=== PATIENT | male | born 1965 | race Caucasian/White ===

== ENCOUNTER 2017-11-28 02:26 | Outpatient (CLI) | payer MEDICAID ==
[~2017-11-28 02:26] MED LIST: CLON0.2T PO; DILT240C54 PO; FURO40TA4 PO; GENT30OI2 TOP; LISI40TA4 PO; LOSA50TA37 PO; POTA-82 PO; SIMV20TA PO; WARF-55 PO
== END 2017-11-28 23:59 | disposition home or self-care (01) ==
LOC: DIABETIC 02:26
PROVIDERS: ATTEND Surgery
DX: M25.50 Pain in unspecified joint (principal); E66.01 Morbid (severe) obesity due to excess calories; I89.0 Lymphedema, not elsewhere classified; I11.0 Hypertensive heart disease with heart failure; I50.9 Heart failure, unspecified
CPT/HCPCS: 97802

== ENCOUNTER 2017-12-13 04:23 | Outpatient (CLI) | payer MEDICAID | END 2017-12-13 23:59 | disposition home or self-care (01) | LOC: DIABETIC 04:23 | PROVIDERS: ATTEND Surgery | DX: M25.50 Pain in unspecified joint (principal); E66.01 Morbid (severe) obesity due to excess calories; I89.0 Lymphedema, not elsewhere classified; I13.0 Hypertensive heart and chronic kidney disease with heart failure and stage 1 through stage 4 chronic kidney disease, or unspecified chronic kidney disease; I50.9 Heart failure, unspecified; N17.9 Acute kidney failure, unspecified; I25.10 Atherosclerotic heart disease of native coronary artery without angina pectoris; I48.2 Chronic atrial fibrillation; E78.5 Hyperlipidemia, unspecified; Z79.01 Long term (current) use of anticoagulants; Z79.899 Other long term (current) drug therapy; Z95.1 Presence of aortocoronary bypass graft | CPT/HCPCS: 97802 ==

== ENCOUNTER 2018-01-10 01:46 | Outpatient (CLI) | payer MEDICAID | END 2018-01-10 23:59 | disposition home or self-care (01) | LOC: DIABETIC 01:46 | PROVIDERS: ATTEND Surgery | DX: E66.01 Morbid (severe) obesity due to excess calories (principal); M25.50 Pain in unspecified joint; I88.9 Nonspecific lymphadenitis, unspecified; I11.0 Hypertensive heart disease with heart failure; I50.9 Heart failure, unspecified; Z79.899 Other long term (current) drug therapy | CPT/HCPCS: 97802 ==

== ENCOUNTER 2022-11-02 22:05 | Inpatient (IN) | payer MEDICAID ==
[~2022-11-02] VITALS: Ht 180.3 cm; Wt 136.4 kg
[~2022-11-02 22:05] MED LIST changes: +LISI40TA13 PO; -LISI40TA4 PO; -LOSA50TA37 PO; +LOSA50TA64 PO; +POTA-366 PO; -POTA-82 PO; +SIMV-342 PO; -SIMV20TA PO
[2022-11-02 23:06] LABS: BASOPHILS # (AUTO) 0.1 X10'3 (0-0.2); BASOPHILS % (AUTO) 0.8 % (0-1); EOSINOPHILS # (AUTO) 0.2 X10'3 (0-0.9); EOSINOPHILS % (AUTO) 2.1 % (0-6); LYMPHOCYTES # (AUTO) 0.9 X10'3 (1.1-4.8); LYMPHOCYTES % (AUTO) 10.3 % (21-51); MEAN CORPUSCULAR HEMOGLOBIN 23.9 PG (27.0-31.0); MEAN CORPUSCULAR HGB CONC 31.2 g/dL (33.0-36.5); MEAN CORPUSCULAR VOLUME 76.8 FL (78-98); MEAN PLATELET VOLUME 7.4 FL (7.4-10.4); MONOCYTES % (AUTO) 11.4 % (2-12); NEUTROPHILS # (AUTO) 6.8 X10'3 (1.8-7.7); NEUTROPHILS % (AUTO) 75.4 % (42-75); PLATELET COUNT 504 X10'3 (140-440); RED BLOOD COUNT 2.83 X10'6 (4.70-6.10); RED CELL DISTRIBUTION WIDTH 18.1 % (11.5-14.5)
[2022-11-02 23:11] LABS: HEMATOCRIT 21.7 % (42.0-52.0); HEMOGLOBIN 6.8 g/dl (14.0-17.9)
[2022-11-02 23:20] LABS: ALANINE AMINOTRANSFERASE 27 U/L (12-78); ALBUMIN 2.4 G/DL (3.4-5.0); ALBUMIN/GLOBULIN RATIO 0.5 (1.1-1.5); ALKALINE PHOSPHATASE 105 IU/L (46-116); ANION GAP 13 (8-16); ASPARTATE AMINO TRANSFERASE 16 U/L (10-37); BILIRUBIN,TOTAL 0.4 MG/DL (0.1-1.0); BLOOD UREA NITROGEN 53 MG/DL (7-18); BUN/CREATININE RATIO 14.6 (10.0-20.0); C-REACTIVE PROTEIN 14.09 MG/DL (0.0-0.5); CALCIUM 8.8 MG/DL (8.5-10.1); CHLORIDE 108 MMOL/L (99-107); CREATININE 3.62 MG/DL (0.60-1.10); GLUCOSE 106 MG/DL (70-104); POTASSIUM 4.1 MMOL/L (3.5-5.1); SODIUM 139 MMOL/L (135-145); TOTAL CARBON DIOXIDE 18.1 MMOL/L (24-32); TOTAL PROTEIN 7.3 G/DL (6.4-8.2); eGFR 17 ML/MIN
[2022-11-03 00:45] LABS: OCCULT BLOOD STOOL POSITIVE (Neg)
[2022-11-03] MEDS ORDERED: KETO5DRO75 (00:46)
[2022-11-03] MEDS ORDERED: FLUT16SP2 BOTHNARES (00:46)
[2022-11-03] MEDS ORDERED: FURO80TA87 PO (00:46)
[2022-11-03] MEDS ORDERED: TADA5TAB2 PO (00:46)
[2022-11-03] MEDS ORDERED: OMEP40CA21 PO (00:46)
[2022-11-03] MEDS ORDERED: CARV-50 PO (00:46)
[2022-11-03] MEDS ORDERED: FERR325T35 PO (00:46)
[2022-11-03] MEDS ORDERED: FOLI0.4T6 PO (00:46)
[2022-11-03] MEDS ORDERED: NIFE-33 PO (00:46)
[2022-11-03 01:00] LABS: CLARITY,URINE SLIGHTLY CLOUDY (Clear); COLOR,URINE YELLOW (Yellow); GLUCOSE, URINE NEGATIVE (Neg); KETONES,URINE NEGATIVE (Neg); LEUKOCYTE ESTERASE ,URINE NEGATIVE (Neg); NITRITES, URINE NEGATIVE (Neg); OCCULT BLOOD,URINE TRACE-INTACT (Neg); PROTEIN,URINE 30 mg/dl (Neg); UROBILINOGEN,URINE 0.2 E.U/dL (0.2-1.0)
[2022-11-03 01:05] LABS: UA COLLECTION TYPE CLN CATCH MIDSTREAM
[2022-11-03 01:06] LABS: COARSE GRANULAR CAST 0-3 /LPF (NEGATIVE); SQUAMOUS EPITHELIAL CELL,UR FEW /LPF (FEW)
[2022-11-03 01:07] LABS: AMORPHOUS URATES 1+; BACTERIA,URINE NONE SEEN /HPF (Neg); WBC,URINE 0-4 /HPF (0-4)
[2022-11-03 01:18] LABS: BASOPHILS # (AUTO) 0.1 X10'3 (0-0.2); BASOPHILS % (AUTO) 0.8 % (0-1); EOSINOPHILS # (AUTO) 0.2 X10'3 (0-0.9); EOSINOPHILS % (AUTO) 1.8 % (0-6); LYMPHOCYTES # (AUTO) 1.1 X10'3 (1.1-4.8); LYMPHOCYTES % (AUTO) 11.6 % (21-51); MEAN CORPUSCULAR HEMOGLOBIN 24.8 PG (27.0-31.0); MEAN CORPUSCULAR HGB CONC 32.5 g/dL (33.0-36.5); MEAN CORPUSCULAR VOLUME 76.3 FL (78-98); MEAN PLATELET VOLUME 7.1 FL (7.4-10.4); MONOCYTES % (AUTO) 10.9 % (2-12); NEUTROPHILS # (AUTO) 7.1 X10'3 (1.8-7.7); NEUTROPHILS % (AUTO) 74.9 % (42-75); PLATELET COUNT 479 X10'3 (140-440); RED BLOOD COUNT 2.75 X10'6 (4.70-6.10); RED CELL DISTRIBUTION WIDTH 17.9 % (11.5-14.5); WHITE BLOOD COUNT 9.5 X10'3 (4.5-11.0)
[2022-11-03 01:19] LABS: APTT 53 SECONDS (22-32)
[2022-11-03 01:20] LABS: HEMOGLOBIN 6.8 g/dl (14.0-17.9)
[2022-11-03] MEDS: pantoprazole 40MG/NS 100ML BAG 100 ML IV SCH ×5 (02:10→20:03)
[2022-11-03 02:32] VITALS: BP 148/76
[2022-11-03 02:47] VITALS: BP 139/76
[2022-11-03] MEDS ORDERED: carVEDilol 12.5mg tablet PO ONE ×2 (02:50→05:40)
[2022-11-03] MEDS ORDERED: HYDROcodone/acetaminophen 5mg/325mg tablet PO ONE (03:10)
[2022-11-03 03:32] VITALS: BP 127/85
--- NOTE | 2022-11-03 08:00 | NUR ---
SPOKE WITH ER MD ABOUT PT PLAN OF CARE. PER MD PT IS OKAY TO EAT. DR. WHITTAKER WAS CONSULTED AND HAS DECIDED PT WILL NOT NEED TO GO TO GI LAB AND IS OKAY WITH PT EATING REGULAR DIET. ALSO UPON FURTHER REVIEW PT CREATENINE LEVELS HAVE BEEN ELEVATED FOR YEARS AND MD DOES NOT FEEL NEPHROLOGY CONSULT IS NEEDED AT THIS TIME. PT WILL HAVE MRI OF HIS FOOT AND PLAN FOR HOSPITAL ADMISSION.
--- NOTE | 2022-11-03 08:10 | NUR ---
WAITING FOR ABX FROM PHARMACY. PHARMACY TO DELIVER
--- NOTE | 2022-11-03 08:10 | NUR ---
UPDATED PT SIGNIFICANT OTHER OF PLAN OF CARE.
[2022-11-03 08:11] LABS: HEMATOCRIT 25.3 % (42.0-52.0); HEMOGLOBIN 7.9 g/dl (14.0-17.9); MEAN CORPUSCULAR HEMOGLOBIN 24.7 PG (27.0-31.0); MEAN CORPUSCULAR HGB CONC 31.3 g/dL (33.0-36.5); MEAN PLATELET VOLUME 7.3 FL (7.4-10.4); PLATELET COUNT 470 X10'3 (140-440); RED CELL DISTRIBUTION WIDTH 18.8 % (11.5-14.5); WHITE BLOOD COUNT 8.1 X10'3 (4.5-11.0)
--- NOTE | 2022-11-03 09:59 | NUR ---
LATE MEDICATION ADMISTRATION OF THE CIPROFLOXACIN PER WAITING MEDICATION [place] FROM PHARMACY
--- NOTE | 2022-11-03 10:26 | NUR ---
PT UP TO BEDSIDE COMMODE, BM. FINISHED MRI SCREENING FORM.
[2022-11-03] MEDS: ciprofloxacin/D5W 200mg/100mL 100 ML IV SCH ×2 (10:40→19:48)
[2022-11-03 14:51] LABS: BASOPHILS # (AUTO) 0.1 X10'3 (0-0.2); EOSINOPHILS # (AUTO) 0.2 X10'3 (0-0.9); EOSINOPHILS % (AUTO) 1.7 % (0-6); HEMATOCRIT 25.9 % (42.0-52.0); HEMOGLOBIN 8.1 g/dl (14.0-17.9); LYMPHOCYTES # (AUTO) 0.8 X10'3 (1.1-4.8); LYMPHOCYTES % (AUTO) 8.5 % (21-51); MEAN CORPUSCULAR HEMOGLOBIN 24.5 PG (27.0-31.0); MEAN CORPUSCULAR HGB CONC 31.3 g/dL (33.0-36.5); MEAN CORPUSCULAR VOLUME 78.3 FL (78-98); MEAN PLATELET VOLUME 7.2 FL (7.4-10.4); MONOCYTES # (AUTO) 1.1 X10'3 (0-0.9); MONOCYTES % (AUTO) 10.7 % (2-12); NEUTROPHILS # (AUTO) 7.7 X10'3 (1.8-7.7); NEUTROPHILS % (AUTO) 78.1 % (42-75); PLATELET COUNT 527 X10'3 (140-440); RED CELL DISTRIBUTION WIDTH 18.5 % (11.5-14.5); WHITE BLOOD COUNT 9.8 X10'3 (4.5-11.0)
[2022-11-03] MEDS ORDERED: HYDROcodone/acetaminophen 10/325mg tab PO ONE (15:05)
[2022-11-03 15:07] LABS: ALANINE AMINOTRANSFERASE 22 U/L (12-78); ALBUMIN 2.5 G/DL (3.4-5.0); ALBUMIN/GLOBULIN RATIO 0.5 (1.1-1.5); ALKALINE PHOSPHATASE 101 IU/L (46-116); ANION GAP 11 (8-16); ASPARTATE AMINO TRANSFERASE 12 U/L (10-37); BILIRUBIN,TOTAL 0.5 MG/DL (0.1-1.0); BLOOD UREA NITROGEN 45 MG/DL (7-18); BUN/CREATININE RATIO 13.4 (10.0-20.0); CALCIUM 9.1 MG/DL (8.5-10.1); CHLORIDE 110 MMOL/L (99-107); CREATININE 3.35 MG/DL (0.60-1.10); GLUCOSE 113 MG/DL (70-104); POTASSIUM 4.1 MMOL/L (3.5-5.1); SODIUM 140 MMOL/L (135-145); TOTAL CARBON DIOXIDE 19.4 MMOL/L (24-32); TOTAL PROTEIN 7.7 G/DL (6.4-8.2); eGFR 19 ML/MIN
[2022-11-03] MEDS ORDERED: magnesium Cl slow-release 64mg tablet PO PRN (16:35)
[2022-11-03] MEDS ORDERED: potassium Cl 40MEQ/1/2NS 520ml 520 ML IV PRN (16:35)
[2022-11-03] MEDS ORDERED: potassium Cl 20 mEq SR tablet PO PRN ×2 (16:35)
[2022-11-03] MEDS ORDERED: acetaminophen 325mg tablet PO PRN (16:35)
[2022-11-03] MEDS ORDERED: ondansetron/PF 4mg/2ml inj IV PRN (16:35)
[2022-11-03] MEDS ORDERED: magnesium 4gm in 100ml NS 100 ML IV PRN (16:35)
[2022-11-03] MEDS ORDERED: morphine 2 MG/ML inj. syringe IV PRN (16:35)
[2022-11-03] MEDS ORDERED: magnesium 2GM in 50ml NS 50 ML IV PRN (16:35)
[2022-11-03] MEDS ORDERED: WARF1TAB83 PO (16:43)
[2022-11-03] MEDS ORDERED: FOLI1TAB27 PO (16:43)
[2022-11-03] MEDS ORDERED: CARV25TA2 PO (16:43)
[2022-11-03] MEDS ORDERED: WARF-55 PO (16:47)
[2022-11-03] MEDS: docusate sod 100mg capsule PO SCH (19:25)
[2022-11-03 20:00] VITALS: BP 159/78
[2022-11-03] MEDS: K and/or MAG REPLACEMENT MC SCH (20:00)
[2022-11-03] MEDS: HYDROcodone/acetaminophen 5mg/325mg tablet PO PRN (22:32)
--- NOTE | 2022-11-03 23:31 | NUR ---
Pt insists on having his change the dressings for his wounds on his legs. He says she is the only one who can do it correctly. His was in the room when he was admitted and she changed the dressings on his lower legs. I talked to him about doing a 2 RN skin check for him but he refused it since he didn't want to undo her work and have it redone incorrectly. I told him we could check his legs and take photos tomorrow when his is here so she can redo his legs. He agreed and I will pass on the information to the day RN.
[2022-11-04] MEDS: pantoprazole 40MG/NS 100ML BAG 100 ML IV SCH ×5 (00:49→21:55)
[2022-11-04 01:00] VITALS: BP 130/62
[2022-11-04] MEDS ORDERED: metoprolol tartrate 25mg tablet PO SCH (01:05)
--- NOTE | 2022-11-04 01:30 | NUR ---
Pts heart rate fluctuating from 110-130's afib. B/P 132/64. Called Dr Chilel pt given one time dose po metoprolol for heart rate and in afib.
--- NOTE | 2022-11-04 03:19 | NUR ---
assumed care of patient from Yon RN who stayed over from dayshift. Pt is resting no change.
--- NOTE | 2022-11-04 06:00 | NUR ---
pt refused blood pressure for tech for am vitals.
[2022-11-04] MEDS: HYDROcodone/acetaminophen 5mg/325mg tablet PO PRN ×2 (06:15→21:58)
--- NOTE | 2022-11-04 06:42 | NUR ---
Patient in room PCU 3024. I have received report from PRATIK WILKERSON and had the opportunity to ask questions and assume patient care.
[2022-11-04 07:29] LABS: BASOPHILS # (AUTO) 0.1 X10'3 (0-0.2); BASOPHILS % (AUTO) 1.2 % (0-1); EOSINOPHILS # (AUTO) 0.2 X10'3 (0-0.9); EOSINOPHILS % (AUTO) 2.4 % (0-6); LYMPHOCYTES # (AUTO) 0.8 X10'3 (1.1-4.8); LYMPHOCYTES % (AUTO) 9.3 % (21-51); MEAN CORPUSCULAR HEMOGLOBIN 24.9 PG (27.0-31.0); MEAN CORPUSCULAR VOLUME 77.6 FL (78-98); MEAN PLATELET VOLUME 7.3 FL (7.4-10.4); MONOCYTES # (AUTO) 0.8 X10'3 (0-0.9); MONOCYTES % (AUTO) 10.2 % (2-12); NEUTROPHILS # (AUTO) 6.3 X10'3 (1.8-7.7); NEUTROPHILS % (AUTO) 76.9 % (42-75); PLATELET COUNT 478 X10'3 (140-440); RED BLOOD COUNT 3.22 X10'6 (4.70-6.10); RED CELL DISTRIBUTION WIDTH 17.9 % (11.5-14.5); WHITE BLOOD COUNT 8.2 X10'3 (4.5-11.0)
[2022-11-04 07:33] LABS: ALBUMIN 2.4 G/DL (3.4-5.0); ANION GAP 10 (8-16); BLOOD UREA NITROGEN 40 MG/DL (7-18); BUN/CREATININE RATIO 12.2 (10.0-20.0); CHLORIDE 112 MMOL/L (99-107); CREATININE 3.27 MG/DL (0.60-1.10); GLUCOSE 101 MG/DL (70-104); MAGNESIUM 2.2 MG/DL (1.5-2.4); POTASSIUM 4.1 MMOL/L (3.5-5.1); SODIUM 141 MMOL/L (135-145); TOTAL CARBON DIOXIDE 18.9 MMOL/L (24-32); eGFR 20 ML/MIN
--- NOTE | 2022-11-04 07:41 | NUR ---
Noted pt on carb controlled/heart healthy diet Glu WNL w/ no A1C hx or home DM meds per EMR. Per RN, pt reported hx DM. NICOLE d/w RN regarding removal of carb controlled restriction if MD agreeable given above- would better meet nutrient needs this admit given stature. Addendum: 11/04/22 at [address] Amended: Links added.
--- NOTE | 2022-11-04 07:42 | NUR ---
Page Sent promotional table spacer PAGER ID: [phone] MESSAGE: [phone] B BRAD PT IS SUSTAINING THE 120-130S HEART RATE WITH RANDOM JUMPS INTO THE 150S HR. PLEASE LET ME KNOW IF THERE BRITNEY ANYTHING YOU WOULD LIKE DONE. HIS MED REC HAS NOT BEEN ADRESSED EITHER. THANKS
[2022-11-04] MEDS: K and/or MAG REPLACEMENT MC SCH ×2 (08:00→20:00)
[2022-11-04] MEDS: ciprofloxacin/D5W 200mg/100mL 100 ML IV SCH ×2 (08:33→20:48)
--- NOTE | 2022-11-04 08:35 | NUR ---
Page Sent PAGER ID: [phone] MESSAGE: [id number] B BRAD, URGENT PT HR IS IN THE 160S HR, I NEED SOEMTHING FOR THIS PT. CAN YOU PLEASE RESPOND THIS IS MY SECOND PAGE. TC
[2022-11-04] MEDS: docusate sod 100mg capsule PO SCH ×2 (08:37→20:49)
[2022-11-04] MEDS ORDERED: metoprolol tartrate 1mg/ml inj IV ONE (08:45)
--- NOTE | 2022-11-04 08:55 | NUR ---
PT REFUSED THE PUSH OF METOPROL, WILL NOTIFY DR DAVALOS.
--- NOTE | 2022-11-04 08:58 | NUR ---
Page Sent PAGER ID: [phone] MESSAGE: [id number] B BRAD PT REFUSED THE METOPROLOL, HE JUST WANTS HIS MEDS TO START KEDAR. TC Watson7
[2022-11-04 10:00] VITALS: BP 132/95
[2022-11-04] MEDS ORDERED: lisinopril 20mg tablet PO SCH (11:07)
[2022-11-04] MEDS: carVEDilol 12.5mg tablet PO SCH ×2 (11:27→16:47)
[2022-11-04] MEDS: folic acid 1mg tablet PO SCH (11:27)
[2022-11-04] MEDS: NIFEdipine XL 30mg tablet PO SCH (11:28)
--- NOTE | 2022-11-04 11:41 | NUR ---
pt refused me looking at his legs and says nursing can look at them when his comes to change his bandages.
[2022-11-04] MEDS ORDERED: furosemide 40mg tablet PO SCH (12:30)
--- NOTE | 2022-11-04 16:04 | NUR ---
Page Sent PAGER ID: [phone] MESSAGE: [id number] B BRAD, PT HAS HEART BURN CAN I GET SOMETHING PLEASE. TC
[2022-11-04] MEDS ORDERED: mag hydrox/Alum hydrox/simeth 30ml oral suspension PO PRN ×2 (16:20→16:25)
[2022-11-04] MEDS: potassium Cl 20 mEq SR tablet PO SCH (16:38)
--- NOTE | 2022-11-04 18:21 | NUR ---
Problems reprioritized. Patient report given, questions answered & plan of care reviewed with dipti rhoades.
[2022-11-04] MEDS ORDERED: levoFLOXACIN-Levaquin 500mg/D5 100 ML IV SCH (19:45)
[2022-11-04] MEDS ORDERED: PEG 3350/Na sulf,bicarb,Cl/KCl oral sol 4 liter bottle PO ONE (19:50)
[2022-11-04] MEDS ORDERED: KETOTIFEN FUMARATE SCH (20:00)
--- NOTE | 2022-11-04 20:00 | NUR ---
pt refusing most care and skin checks
--- NOTE | 2022-11-04 20:00 | NUR ---
pt refused vital signs
[2022-11-04] MEDS: linezolid 600mg/300ml PREMIX 300 ML IV SCH (22:39)
--- NOTE | 2022-11-04 23:19 | NUR ---
HIGH SCHOOL ENGLISH TEACHER documentation: I have reviewed and agree with all interventions, assessments performed and documented by dipti rhoades .
[2022-11-05] MEDS: HYDROcodone/acetaminophen 5mg/325mg tablet PO PRN ×4 (03:10→23:43)
--- NOTE | 2022-11-05 03:13 | NUR ---
pt requesting sandwich and refusing bowel prep. educated pt on importance of drinking Golytely to have colonoscopy done and to verify if he has a bleed. pt still refused and insisted on eating.
[2022-11-05] MEDS: pantoprazole 40MG/NS 100ML BAG 100 ML IV SCH ×5 (05:37→23:46)
[2022-11-05 06:00] VITALS: BP 118/50
[2022-11-05 06:45] LABS: BASOPHILS # (AUTO) 0.1 X10'3 (0-0.2); BASOPHILS % (AUTO) 1.1 % (0-1); EOSINOPHILS # (AUTO) 0.2 X10'3 (0-0.9); EOSINOPHILS % (AUTO) 1.6 % (0-6); LYMPHOCYTES # (AUTO) 0.9 X10'3 (1.1-4.8); LYMPHOCYTES % (AUTO) 9.9 % (21-51); MEAN CORPUSCULAR HEMOGLOBIN 25.2 PG (27.0-31.0); MEAN CORPUSCULAR HGB CONC 32.6 g/dL (33.0-36.5); MEAN CORPUSCULAR VOLUME 77.4 FL (78-98); MEAN PLATELET VOLUME 7.5 FL (7.4-10.4); MONOCYTES # (AUTO) 1.2 X10'3 (0-0.9); MONOCYTES % (AUTO) 12.3 % (2-12); NEUTROPHILS # (AUTO) 7.1 X10'3 (1.8-7.7); NEUTROPHILS % (AUTO) 75.1 % (42-75); PLATELET COUNT 447 X10'3 (140-440); RED BLOOD COUNT 2.78 X10'6 (4.70-6.10); RED CELL DISTRIBUTION WIDTH 18.6 % (11.5-14.5); WHITE BLOOD COUNT 9.4 X10'3 (4.5-11.0)
[2022-11-05 06:48] LABS: ALBUMIN 2.3 G/DL (3.4-5.0); ANION GAP 12 (8-16); BLOOD UREA NITROGEN 38 MG/DL (7-18); BUN/CREATININE RATIO 11.7 (10.0-20.0); CALCIUM 8.6 MG/DL (8.5-10.1); CHLORIDE 109 MMOL/L (99-107); CREATININE 3.25 MG/DL (0.60-1.10); GLUCOSE 114 MG/DL (70-104); SODIUM 139 MMOL/L (135-145); TOTAL CARBON DIOXIDE 17.6 MMOL/L (24-32); eGFR 20 ML/MIN
[2022-11-05 06:53] LABS: HEMATOCRIT 21.5 % (42.0-52.0)
--- NOTE | 2022-11-05 06:54 | NUR ---
sent to [facility]: [id number] Roseanna: needs second IV for antibiotics/blood. 4 attempts. unable to obtain. Could you help please? Thank you. Kavya WILKERSON [phone]
[2022-11-05 07:13] LABS: PLATELET ESTIMATE INCREASED
[2022-11-05 07:14] LABS: ANISOCYTOSIS 2+; HYPOCHROMASIA 1+; MICROCYTOSIS 1+; POLYCHROMASIA 1+; ROULEAUX 1+
[2022-11-05 07:15] LABS: ELLIPTOCYTES 1+
--- NOTE | 2022-11-05 07:24 | NUR ---
sent to [facility]: 1892Y Roseanna: H&H: 7.0,21.5. Refusing golytly, wound care and bp vital sign. Has dm, Aic order? thank you. Kavya WILKERSON [phone]
[2022-11-05] MEDS: carVEDilol 12.5mg tablet PO SCH ×2 (07:30→17:20)
[2022-11-05] MEDS ORDERED: non-formulary drug (Omeprazole (Prilosec) 1 CAP) PO SCH (08:00)
[2022-11-05] MEDS: fluticasone nasal spray 16GM bottle NS SCH (08:00)
[2022-11-05] MEDS: K and/or MAG REPLACEMENT MC SCH ×2 (08:00→19:38)
[2022-11-05] MEDS ORDERED: warfarin 1mg tablet PO SCH (08:00)
[2022-11-05] MEDS ORDERED: non-formulary drug (Tadalafil* (Cialis*) 1 TAB) PO SCH (08:00)
[2022-11-05] MEDS: docusate sod 100mg capsule PO SCH ×2 (08:00→21:31)
[2022-11-05] MEDS: ciprofloxacin/D5W 200mg/100mL 100 ML IV SCH (08:39)
[2022-11-05] MEDS: folic acid 1mg tablet PO SCH (08:39)
[2022-11-05] MEDS: ferrous sulfate 325mg tablet PO SCH (08:39)
[2022-11-05] MEDS: potassium Cl 20 mEq SR tablet PO SCH ×2 (08:39→17:20)
[2022-11-05] MEDS: NIFEdipine XL 30mg tablet PO SCH (08:39)
[2022-11-05] MEDS: linezolid 600mg/300ml PREMIX 300 ML IV SCH ×2 (09:51→21:07)
[2022-11-05 11:00] VITALS: BP 110/76
--- NOTE | 2022-11-05 13:24 | NUR ---
F/u: Noted orders in place for an A1c, results pending at this time. Per physician notes pt with foot ulcer/osteomyelitis. Wound care has been consulted, pending assessment. Noted pt started on IV Linezolid 11/04, pt would benefit from low tyramine nutrition therapy education if to continue on this abx. Will continue to follow and make recommendations as appropriate and provide nutrition therapy education(s) as needed. Addendum: 11/05/22 at [address] Amended: Links added.
[2022-11-05 13:27] LABS: HEMOGLOBIN 7.3 g/dl (14.0-17.9); MEAN CORPUSCULAR HEMOGLOBIN 24.9 PG (27.0-31.0); MEAN CORPUSCULAR HGB CONC 31.9 g/dL (33.0-36.5); MEAN CORPUSCULAR VOLUME 78.2 FL (78-98); MEAN PLATELET VOLUME 7.4 FL (7.4-10.4); PLATELET COUNT 429 X10'3 (140-440); RED BLOOD COUNT 2.94 X10'6 (4.70-6.10); RED CELL DISTRIBUTION WIDTH 18.4 % (11.5-14.5); WHITE BLOOD COUNT 8.7 X10'3 (4.5-11.0)
--- NOTE | 2022-11-05 21:10 | NUR ---
EDUCATIONAL GUIDANCE COUNSELOR documentation: I have reviewed and agree with all interventions, assessments performed and documented by Concetta Devine LVN.
--- NOTE | 2022-11-05 21:15 | NUR ---
pt advised he says his pain is a 7 because he wants to "stay consistent". pt refused pain meds at this time because they make him drowsy and he is trying to finish drinking his go lytley
[2022-11-05] MEDS: ciprofloxacin 250mg tablet PO SCH (21:31)
--- NOTE | 2022-11-05 22:34 | NUR ---
unabe to find working manual BP cuff, pt refuses to get BP w/ vitals machine.
[2022-11-06] MEDS: pantoprazole 40MG/NS 100ML BAG 100 ML IV SCH ×4 (01:00→17:07)
[2022-11-06 05:46] LABS: BASOPHILS # (AUTO) 0.1 X10'3 (0-0.2); BASOPHILS % (AUTO) 0.9 % (0-1); EOSINOPHILS # (AUTO) 0.2 X10'3 (0-0.9); EOSINOPHILS % (AUTO) 1.7 % (0-6); HEMATOCRIT 22.9 % (42.0-52.0); HEMOGLOBIN 7.2 g/dl (14.0-17.9); LYMPHOCYTES # (AUTO) 0.9 X10'3 (1.1-4.8); LYMPHOCYTES % (AUTO) 10.5 % (21-51); MEAN CORPUSCULAR HEMOGLOBIN 24.5 PG (27.0-31.0); MEAN CORPUSCULAR HGB CONC 31.6 g/dL (33.0-36.5); MEAN CORPUSCULAR VOLUME 77.4 FL (78-98); MEAN PLATELET VOLUME 7.3 FL (7.4-10.4); MONOCYTES % (AUTO) 11.7 % (2-12); NEUTROPHILS # (AUTO) 6.6 X10'3 (1.8-7.7); NEUTROPHILS % (AUTO) 75.2 % (42-75); PLATELET COUNT 430 X10'3 (140-440); RED BLOOD COUNT 2.95 X10'6 (4.70-6.10); RED CELL DISTRIBUTION WIDTH 18.6 % (11.5-14.5); WHITE BLOOD COUNT 8.7 X10'3 (4.5-11.0)
[2022-11-06 06:25] LABS: ALBUMIN 2.4 G/DL (3.4-5.0); ANION GAP 13 (8-16); BLOOD UREA NITROGEN 38 MG/DL (7-18); BUN/CREATININE RATIO 11.5 (10.0-20.0); CHLORIDE 109 MMOL/L (99-107); CREATININE 3.31 MG/DL (0.60-1.10); GLUCOSE 110 MG/DL (70-104); MAGNESIUM 2.1 MG/DL (1.5-2.4); POTASSIUM 4.4 MMOL/L (3.5-5.1); SODIUM 140 MMOL/L (135-145); TOTAL CARBON DIOXIDE 18.5 MMOL/L (24-32); eGFR 19 ML/MIN
[2022-11-06 07:13] LABS: ANISOCYTOSIS 2+; ELLIPTOCYTES 1+; MICROCYTOSIS 1+; PLATELET ESTIMATE NORMAL; POIKILOCYTOSIS FEW
--- NOTE | 2022-11-06 07:21 | NUR ---
sent to [facility]: [id number] Roseanna: critical lab: PT 55.4, INR 5.8
[2022-11-06] MEDS: K and/or MAG REPLACEMENT MC SCH ×2 (08:00→20:00)
[2022-11-06] MEDS: linezolid 600mg/300ml PREMIX 300 ML IV SCH ×2 (08:32→20:59)
[2022-11-06] MEDS: NIFEdipine XL 30mg tablet PO SCH (08:32)
[2022-11-06] MEDS: docusate sod 100mg capsule PO SCH ×2 (08:33→20:00)
[2022-11-06] MEDS: potassium Cl 20 mEq SR tablet PO SCH ×2 (08:33→17:51)
[2022-11-06] MEDS: carVEDilol 12.5mg tablet PO SCH ×2 (08:33→17:51)
[2022-11-06] MEDS: folic acid 1mg tablet PO SCH (08:34)
[2022-11-06] MEDS: ferrous sulfate 325mg tablet PO SCH (08:34)
[2022-11-06] MEDS: HYDROcodone/acetaminophen 5mg/325mg tablet PO PRN ×2 (08:34→20:33)
[2022-11-06] MEDS: fluticasone nasal spray 16GM bottle NS SCH (08:43)
[2022-11-06] MEDS: ciprofloxacin 250mg tablet PO SCH ×2 (09:52→20:32)
--- NOTE | 2022-11-06 13:15 | NUR ---
Initial: Pt admit for melena and left foot ulcer/osteomyelitis. Per physician note left foot has an open wound, no staging in WOC note. Pt currently on a CHO controlled heart healthy diet and eating poorly, documented to be mostly consuming 25% and 100% of the starch only at meals. Pt seen at bedside, endorses a low appetite. Food preferences were obtained and d/w dietary, see below. Pt provided with written and verbal low tyramine and high protein nutrition therapy educations. Pt states he drinks Premier Protein at home and would drink Ensure during admit though then declines ONS stating he doesn't want to get it if he can't just try it first. RD discussed ONS options and encouraged pt to think about it as he is not eating much and would benefit from the additional nutrition/protein. Pt verbalized understanding, states he'll think about it, and reports trying to eat the protein at meals. Pt reports h/o gastric sleeve stating he is unsure of when he got it though it was a couple years ago and secondary to this he doesn't eat large meals and provides examples such as eggs x2 and lopez x2 for breakfast then 1/2 sandwich for lunch. Pt denies food allergies or difficulty chewing/swallowing. Per pt he just had a BM today. Pt provided with RD contact information and encouraged to reach out if needed. Noted current A1c is 5.5% and pt denies any h/o DM. RD paged physician with recommendation to discontinue CHO controlled diet restriction given this information, BG 101-114 mg/dL since admit. Will continue to follow closely. Recommendations: 1) Continue heart healthy diet; remove CHO controlled restriction given A1c 5.5%, BG 101-114 mg/dL since admit, and no PMH DM per pt- physician paged 11/06 2) [place] food preferences: apple juice TID, soup BIDLD; no coffee, hot/iced tea, melons, or Mandarin oranges; pt prefers chocolate over vanilla when possible 3) Consider chocolate Ensure IF pt agreeable; pt declined 11/06 4) Routine bowel care 5) Scaled weight this admit; subsequent weekly scaled weights Addendum: 11/06/22 at [address] Amended: Links added.
--- NOTE | 2022-11-06 16:09 | NUR ---
Report given to Ramón RN on ortho/neuro floor. pt will leave unit via bed.
--- NOTE | 2022-11-06 16:45 | NUR ---
Patient in room ORTHO 4024. I have received report from Olivia WILKERSON and had the opportunity to ask questions and assume patient care.
--- NOTE | 2022-11-06 17:00 | NUR ---
Patient mad familiar with room at this time. Patient was set up with BSC and all necessities. Patient was transferred in house. Patient is alert and oriented time 4. All lab values reviewed and medications addressed upon reaching the floor. Patient was grossly assessed and WNL. Patient doing well at this time. Call light in reach
--- NOTE | 2022-11-06 18:47 | NUR ---
Problems reprioritized. Patient report given, questions answered & plan of care reviewed with Debbie WILKERSON.
--- NOTE | 2022-11-06 18:57 | NUR ---
PAGER ID: [phone] MESSAGE: Ramón Ricketts [phone] re: [id number] Wilfred Condon patient does not have transfer orders, and I was wondering if you were continuing Tele monitoring or was it to be DC'd Thanks Ramón.
--- NOTE | 2022-11-06 20:02 | NUR ---
Problems reprioritized. Patient report given, questions answered & plan of care reviewed with RHEA VILLAFUERTE.
[2022-11-06 22:00] VITALS: BP 152/98
[2022-11-07] MEDS: HYDROcodone/acetaminophen 5mg/325mg tablet PO PRN ×4 (00:55→23:19)
[2022-11-07] MEDS: pantoprazole 40MG/NS 100ML BAG 100 ML IV SCH ×6 (01:01→23:20)
[2022-11-07 02:44] VITALS: BP 155/88
[2022-11-07 06:00] VITALS: BP 148/92
[2022-11-07 06:06] LABS: ALBUMIN 2.2 G/DL (3.4-5.0); ANION GAP 12 (8-16); BLOOD UREA NITROGEN 37 MG/DL (7-18); BUN/CREATININE RATIO 10.9 (10.0-20.0); CALCIUM 8.5 MG/DL (8.5-10.1); CHLORIDE 109 MMOL/L (99-107); GLUCOSE 122 MG/DL (70-104); POTASSIUM 4.1 MMOL/L (3.5-5.1); SODIUM 139 MMOL/L (135-145); eGFR 19 ML/MIN
[2022-11-07 06:10] LABS: BASOPHILS # (AUTO) 0.1 X10'3 (0-0.2); BASOPHILS % (AUTO) 1.1 % (0-1); EOSINOPHILS # (AUTO) 0.3 X10'3 (0-0.9); EOSINOPHILS % (AUTO) 3.4 % (0-6); LYMPHOCYTES # (AUTO) 1.3 X10'3 (1.1-4.8); LYMPHOCYTES % (AUTO) 16.6 % (21-51); MEAN CORPUSCULAR HEMOGLOBIN 24.4 PG (27.0-31.0); MEAN CORPUSCULAR HGB CONC 31.5 g/dL (33.0-36.5); MEAN CORPUSCULAR VOLUME 77.6 FL (78-98); MEAN PLATELET VOLUME 7.3 FL (7.4-10.4); MONOCYTES # (AUTO) 0.8 X10'3 (0-0.9); MONOCYTES % (AUTO) 11.1 % (2-12); NEUTROPHILS # (AUTO) 5.1 X10'3 (1.8-7.7); NEUTROPHILS % (AUTO) 67.8 % (42-75); PLATELET COUNT 397 X10'3 (140-440); RED BLOOD COUNT 2.74 X10'6 (4.70-6.10); RED CELL DISTRIBUTION WIDTH 18.5 % (11.5-14.5); WHITE BLOOD COUNT 7.6 X10'3 (4.5-11.0)
--- NOTE | 2022-11-07 06:10 | NUR ---
received report from suzanne muller
--- NOTE | 2022-11-07 06:12 | NUR ---
Problems reprioritized. Patient report given, questions answered & plan of care reviewed with RHEA CRYSTAL.
[2022-11-07 06:25] LABS: HEMATOCRIT 21.3 % (42.0-52.0); HEMOGLOBIN 6.7 g/dl (14.0-17.9)
[2022-11-07] MEDS: linezolid 600mg/300ml PREMIX 300 ML IV SCH ×2 (07:24→19:33)
[2022-11-07] MEDS: fluticasone nasal spray 16GM bottle NS SCH (07:29)
[2022-11-07] MEDS: K and/or MAG REPLACEMENT MC SCH ×2 (07:30→19:38)
[2022-11-07] MEDS: ferrous sulfate 325mg tablet PO SCH (08:00)
--- NOTE | 2022-11-07 08:00 | NUR ---
sent page to hospitalist notifying of ptt, inr and h&h levels, no new orders at this time
[2022-11-07] MEDS: NIFEdipine XL 30mg tablet PO SCH (08:47)
[2022-11-07] MEDS: docusate sod 100mg capsule PO SCH ×2 (08:47→19:32)
[2022-11-07] MEDS: potassium Cl 20 mEq SR tablet PO SCH ×2 (08:47→16:44)
[2022-11-07] MEDS: carVEDilol 12.5mg tablet PO SCH ×2 (08:48→16:45)
[2022-11-07] MEDS: ciprofloxacin 250mg tablet PO SCH ×2 (08:48→20:59)
[2022-11-07] MEDS: folic acid 1mg tablet PO SCH (08:48)
[2022-11-07 10:00] VITALS: BP 142/86
--- NOTE | 2022-11-07 12:21 | NUR ---
pt refusing woc care and refusing to have photos taken of bilateral lower extremities, continue to educate and continue to monitor
--- NOTE | 2022-11-07 15:55 | NUR ---
pt is refusing to have his vital signs taken while having his blood infusing, continue to monitor
--- NOTE | 2022-11-07 18:08 | NUR ---
gave report to suzanne horn
--- NOTE | 2022-11-07 18:29 | NUR ---
Patient in room ORTHO 4024. I have received report from suzanne Cruz and had the opportunity to ask questions and assume patient care.
[2022-11-07 19:00] VITALS: BP 138/90
[2022-11-07 22:00] VITALS: BP 132/84
[2022-11-08] MEDS: HYDROcodone/acetaminophen 5mg/325mg tablet PO PRN ×3 (03:41→21:46)
--- NOTE | 2022-11-08 04:06 | NUR ---
MESSAGE: [id number] Dustin Condon just had 11 sec vtach. bp138/90 hr108. #[id number] Cele
[2022-11-08] MEDS: pantoprazole 40MG/NS 100ML BAG 100 ML IV SCH ×4 (04:10→20:54)
[2022-11-08 05:17] LABS: BASOPHILS # (AUTO) 0.1 X10'3 (0-0.2); BASOPHILS % (AUTO) 1.4 % (0-1); EOSINOPHILS # (AUTO) 0.3 X10'3 (0-0.9); EOSINOPHILS % (AUTO) 3.6 % (0-6); HEMATOCRIT 22.8 % (42.0-52.0); HEMOGLOBIN 7.3 g/dl (14.0-17.9); LYMPHOCYTES # (AUTO) 1.2 X10'3 (1.1-4.8); LYMPHOCYTES % (AUTO) 16.4 % (21-51); MEAN CORPUSCULAR HEMOGLOBIN 25.3 PG (27.0-31.0); MEAN CORPUSCULAR HGB CONC 32.2 g/dL (33.0-36.5); MEAN CORPUSCULAR VOLUME 78.5 FL (78-98); MEAN PLATELET VOLUME 7.4 FL (7.4-10.4); MONOCYTES # (AUTO) 0.9 X10'3 (0-0.9); MONOCYTES % (AUTO) 11.7 % (2-12); NEUTROPHILS # (AUTO) 4.9 X10'3 (1.8-7.7); NEUTROPHILS % (AUTO) 66.9 % (42-75); PLATELET COUNT 387 X10'3 (140-440); RED CELL DISTRIBUTION WIDTH 18.6 % (11.5-14.5); WHITE BLOOD COUNT 7.4 X10'3 (4.5-11.0)
[2022-11-08 05:23] LABS: ALBUMIN 2.3 G/DL (3.4-5.0); ANION GAP 12 (8-16); BLOOD UREA NITROGEN 37 MG/DL (7-18); BUN/CREATININE RATIO 10.6 (10.0-20.0); CALCIUM 8.5 MG/DL (8.5-10.1); CHLORIDE 108 MMOL/L (99-107); CREATININE 3.49 MG/DL (0.60-1.10); GLUCOSE 95 MG/DL (70-104); POTASSIUM 4.2 MMOL/L (3.5-5.1); SODIUM 139 MMOL/L (135-145); TOTAL CARBON DIOXIDE 19.4 MMOL/L (24-32); eGFR 18 ML/MIN
[2022-11-08 06:00] VITALS: BP 142/84
--- NOTE | 2022-11-08 06:20 | NUR ---
received report from suzanne horn
[2022-11-08 06:27] LABS: ANISOCYTOSIS 2+; ELLIPTOCYTES FEW; MICROCYTOSIS 1+; PLATELET ESTIMATE NORMAL
[2022-11-08] MEDS: K and/or MAG REPLACEMENT MC SCH ×2 (07:29→20:00)
[2022-11-08] MEDS: fluticasone nasal spray 16GM bottle NS SCH (07:45)
[2022-11-08] MEDS: potassium Cl 20 mEq SR tablet PO SCH ×2 (07:48→16:18)
[2022-11-08] MEDS: folic acid 1mg tablet PO SCH (07:48)
[2022-11-08] MEDS: ferrous sulfate 325mg tablet PO SCH (07:49)
[2022-11-08] MEDS: docusate sod 100mg capsule PO SCH ×2 (07:50→20:00)
[2022-11-08] MEDS: carVEDilol 12.5mg tablet PO SCH ×2 (07:50→16:17)
[2022-11-08] MEDS: NIFEdipine XL 30mg tablet PO SCH (07:51)
[2022-11-08] MEDS: linezolid 600mg/300ml PREMIX 300 ML IV SCH ×2 (07:53→20:53)
[2022-11-08 10:00] VITALS: BP 140/85
[2022-11-08] MEDS: ciprofloxacin 250mg tablet PO SCH ×2 (11:23→20:53)
[2022-11-08 18:00] VITALS: BP 140/90
--- NOTE | 2022-11-08 18:34 | NUR ---
GAVE REPORT TO RHEA CARPENTRE
[2022-11-08] MEDS ORDERED: warfarin 5mg tablet PO ONE (21:00)
[2022-11-08 22:00] VITALS: BP_SYST 130; BP_SYST 156; BP_DIAS 100; BP_DIAS 89
[2022-11-09] MEDS: HYDROcodone/acetaminophen 5mg/325mg tablet PO PRN ×2 (01:38→08:09)
[2022-11-09] MEDS: pantoprazole 40MG/NS 100ML BAG 100 ML IV SCH ×3 (03:16→11:00)
[2022-11-09 06:16] LABS: BASOPHILS # (AUTO) 0.1 X10'3 (0-0.2); BASOPHILS % (AUTO) 0.9 % (0-1); EOSINOPHILS # (AUTO) 0.2 X10'3 (0-0.9); EOSINOPHILS % (AUTO) 3.6 % (0-6); HEMATOCRIT 23.8 % (42.0-52.0); HEMOGLOBIN 7.6 g/dl (14.0-17.9); LYMPHOCYTES # (AUTO) 1.1 X10'3 (1.1-4.8); LYMPHOCYTES % (AUTO) 16.6 % (21-51); MEAN CORPUSCULAR HEMOGLOBIN 25.1 PG (27.0-31.0); MEAN CORPUSCULAR HGB CONC 31.9 g/dL (33.0-36.5); MEAN CORPUSCULAR VOLUME 78.6 FL (78-98); MEAN PLATELET VOLUME 7.4 FL (7.4-10.4); MONOCYTES # (AUTO) 0.7 X10'3 (0-0.9); MONOCYTES % (AUTO) 10.4 % (2-12); NEUTROPHILS # (AUTO) 4.7 X10'3 (1.8-7.7); NEUTROPHILS % (AUTO) 68.5 % (42-75); PLATELET COUNT 396 X10'3 (140-440); RED BLOOD COUNT 3.03 X10'6 (4.70-6.10); WHITE BLOOD COUNT 6.8 X10'3 (4.5-11.0)
--- NOTE | 2022-11-09 06:23 | NUR ---
Problems reprioritized. Patient report given, questions answered & plan of care reviewed with suzanne Francisco.
[2022-11-09] MEDS ORDERED: WARF-55 PO (07:05)
--- NOTE | 2022-11-09 07:15 | NUR ---
Patient in room ORTHO 4024. I have received report from Peter WILKERSON and had the opportunity to ask questions and assume patient care.
[2022-11-09] MEDS: potassium Cl 20 mEq SR tablet PO SCH (07:30)
[2022-11-09 07:41] VITALS: BP 121/85
[2022-11-09] MEDS: NIFEdipine XL 30mg tablet PO SCH (07:52)
[2022-11-09] MEDS: folic acid 1mg tablet PO SCH (07:52)
[2022-11-09] MEDS: docusate sod 100mg capsule PO SCH (07:53)
[2022-11-09] MEDS: ferrous sulfate 325mg tablet PO SCH (07:53)
[2022-11-09] MEDS: carVEDilol 12.5mg tablet PO SCH (07:53)
[2022-11-09] MEDS: fluticasone nasal spray 16GM bottle NS SCH (07:56)
[2022-11-09] MEDS: K and/or MAG REPLACEMENT MC SCH (07:58)
[2022-11-09] MEDS: linezolid 600mg/300ml PREMIX 300 ML IV SCH (08:00)
--- NOTE | 2022-11-09 10:34 | NUR ---
Patients IV pulled out somehow. Patient won't allow me to restart until Dr. Vincent rounds on him and lets him know if he will be staying longer. Patient states that there is no communication in the hospital. Patient has a green blanket but no signs of aggressiveness, just rudeness. Will discuss with Dr. Vincent if patient needs to have IVP initiated again.
[2022-11-09] MEDS: ciprofloxacin 250mg tablet PO SCH (11:06)
[2022-11-09 11:31] VITALS: BP 131/75
[2022-11-09] MEDS ORDERED: CIPR250T26 PO (12:27)
[2022-11-09] MEDS ORDERED: CLIN-97 PO (12:27)
--- NOTE | 2022-11-09 13:50 | NUR ---
Patient discharged on paper. Refusing dressing change, states "my (Elle) will do it when I get home". Patient aware of medication next doses and changed dosing of medications, and to garbage pick up man antibiotics at [facility]. Patient has called and will be discharged when she arrives. Patient has no IV to DC.
--- NOTE | 2022-11-09 13:57 | NUR ---
Tele box called and made aware patient is being discharged, patient tool himself off tele monitor.
--- NOTE | 2022-11-09 14:20 | NUR ---
Patient wheeled out to lobby.
--- NOTE | 2022-11-09 14:26 | NUR ---
Patient reports he is discharging home today. He refuses dressing change or to be seen by [facility] nurse. He states his will do the dressing change at home.
== END 2022-11-09 14:05 | disposition home or self-care (01) | DRG 344 ==
LOC: ER 22:05 → ED HOLD 11-03 16:39 → PCU 3S 11-03 20:35 → ORTHO 4S 11-06 16:25
PROVIDERS: ADMIT Internal Medicine; ATTEND Internal Medicine
PROC: 30233N1 Transfusion of Nonautologous Red Blood Cells into Peripheral Vein, Percutaneous Approach (ICD-10-PCS; principal; 2022-11-03)
DX: E11.69 Type 2 diabetes mellitus with other specified complication (principal); M86.672 Other chronic osteomyelitis, left ankle and foot; E87.20 Acidosis, unspecified; I42.9 Cardiomyopathy, unspecified; N17.9 Acute kidney failure, unspecified; I13.0 Hypertensive heart and chronic kidney disease with heart failure and stage 1 through stage 4 chronic kidney disease, or unspecified chronic kidney disease; E11.621 Type 2 diabetes mellitus with foot ulcer; I50.22 Chronic systolic (congestive) heart failure; D64.9 Anemia, unspecified; E11.22 Type 2 diabetes mellitus with diabetic chronic kidney disease; G47.33 Obstructive sleep apnea (adult) (pediatric); K92.1 Melena; R00.0 Tachycardia, unspecified; R12 Heartburn; E11.40 Type 2 diabetes mellitus with diabetic neuropathy, unspecified; E66.01 Morbid (severe) obesity due to excess calories; E78.5 Hyperlipidemia, unspecified; I25.10 Atherosclerotic heart disease of native coronary artery without angina pectoris; I48.91 Unspecified atrial fibrillation; L97.529 Non-pressure chronic ulcer of other part of left foot with unspecified severity; M15.4 Erosive (osteo)arthritis; N18.9 Chronic kidney disease, unspecified; R79.1 Abnormal coagulation profile; Z53.20 Procedure and treatment not carried out because of patient's decision for unspecified reasons; Z79.01 Long term (current) use of anticoagulants; Z88.0 Allergy status to penicillin; Z88.1 Allergy status to other antibiotic agents; Z98.84 Bariatric surgery status; Z68.41 Body mass index [BMI] 40.0-44.9, adult; Z79.899 Other long term (current) drug therapy
CPT/HCPCS: 36415; 36430; 71045; 73620; 73630; 73700; 80048; 80053; 81001; 82272; 83036; 83605; 83735; 84145; 85008; 85025; 85027; 85610; 85651; 85730; 86140; 86885; 86900; 86901; 86920; 87040; 87081; 93005; 93306; 99285; A4649; A6196; A6253; A6258; A6446; A6449; C9113; G0378; J0744; J2020; J7040; P9016

== ENCOUNTER 2022-11-16 15:21 | Emergency (ER) | payer MEDICAID ==
[~2022-11-16] VITALS: Ht 154.9 cm; Wt 146.8 kg
[~2022-11-16 15:21] MED LIST changes: +CARV25TA2 PO; +CIPR250T26 PO; +CLIN-97 PO; -CLON0.2T PO; -DILT240C54 PO; +FERR325T35 PO; +FLUT16SP2 BOTHNARES; +FOLI1TAB27 PO; -FURO40TA4 PO; -GENT30OI2 TOP; +KETO5DRO75; -LISI40TA13 PO; -LOSA50TA64 PO; +NIFE-33 PO; +OMEP40CA21 PO; -SIMV-342 PO; +TADA5TAB2 PO
[2022-11-16] MEDS ORDERED: metoprolol tartrate 1mg/ml inj IV ONE (17:50)
--- NOTE | 2022-11-16 17:52 | NUR ---
Unable to void at this time,refused straight cath, Dr. Jensen aware.
[2022-11-16 18:26] LABS: BASOPHILS # (AUTO) 0.1 X10'3 (0-0.2); EOSINOPHILS # (AUTO) 0.7 X10'3 (0-0.9); EOSINOPHILS % (AUTO) 7.8 % (0-6); HEMATOCRIT 24.8 % (42.0-52.0); HEMOGLOBIN 7.6 g/dl (14.0-17.9); LYMPHOCYTES # (AUTO) 1.3 X10'3 (1.1-4.8); LYMPHOCYTES % (AUTO) 14.8 % (21-51); MEAN CORPUSCULAR HEMOGLOBIN 24.8 PG (27.0-31.0); MEAN CORPUSCULAR HGB CONC 30.9 g/dL (33.0-36.5); MEAN CORPUSCULAR VOLUME 80.3 FL (78-98); MEAN PLATELET VOLUME 7.5 FL (7.4-10.4); MONOCYTES # (AUTO) 0.9 X10'3 (0-0.9); MONOCYTES % (AUTO) 10.8 % (2-12); NEUTROPHILS # (AUTO) 5.6 X10'3 (1.8-7.7); NEUTROPHILS % (AUTO) 65.6 % (42-75); PLATELET COUNT 301 X10'3 (140-440); RED BLOOD COUNT 3.09 X10'6 (4.70-6.10); RED CELL DISTRIBUTION WIDTH 19.8 % (11.5-14.5); WHITE BLOOD COUNT 8.5 X10'3 (4.5-11.0)
[2022-11-16 18:40] LABS: APTT 44 SECONDS (22-32)
[2022-11-16 18:48] LABS: ALANINE AMINOTRANSFERASE 18 U/L (12-78); ALBUMIN 2.7 G/DL (3.4-5.0); ALBUMIN/GLOBULIN RATIO 0.6 (1.1-1.5); ALKALINE PHOSPHATASE 97 IU/L (46-116); ANION GAP 11 (8-16); ASPARTATE AMINO TRANSFERASE 13 U/L (10-37); BILIRUBIN,TOTAL 0.3 MG/DL (0.1-1.0); BLOOD UREA NITROGEN 36 MG/DL (7-18); BUN/CREATININE RATIO 8.8 (10.0-20.0); CALCIUM 8.6 MG/DL (8.5-10.1); CHLORIDE 109 MMOL/L (99-107); CREATININE 4.09 MG/DL (0.60-1.10); GLUCOSE 103 MG/DL (70-104); POTASSIUM 4.7 MMOL/L (3.5-5.1); SODIUM 140 MMOL/L (135-145); TOTAL CARBON DIOXIDE 19.6 MMOL/L (24-32); TOTAL PROTEIN 7.3 G/DL (6.4-8.2); eGFR 15 ML/MIN
[2022-11-16 19:08] LABS: ANISOCYTOSIS 2+; PLATELET ESTIMATE NORMAL
[2022-11-16 19:10] LABS: BURR CELLS FEW; ELLIPTOCYTES FEW
[2022-11-16 19:11] LABS: POIKILOCYTOSIS 1+
[2022-11-16 19:42] LABS: CLARITY,URINE SLIGHTLY CLOUDY (Clear); COLOR,URINE YELLOW (Yellow); GLUCOSE, URINE NEGATIVE (Neg); KETONES,URINE NEGATIVE (Neg); LEUKOCYTE ESTERASE ,URINE NEGATIVE (Neg); NITRITES, URINE NEGATIVE (Neg); OCCULT BLOOD,URINE NEGATIVE (Neg); PROTEIN,URINE TRACE mg/dl (Neg); UROBILINOGEN,URINE 0.2 E.U/dL (0.2-1.0)
[2022-11-16 19:46] VITALS: BP 130/85
[2022-11-16 19:46] LABS: UA COLLECTION TYPE VOIDED
[2022-11-16 19:48] LABS: COARSE GRANULAR CAST 0-3 /LPF (NEGATIVE); SQUAMOUS EPITHELIAL CELL,UR FEW /LPF (FEW); TRANSITIONAL EPI CELLS,URINE FEW /HPF
[2022-11-16 19:49] LABS: BACTERIA,URINE NONE SEEN /HPF (Neg); RBC,URINE 0-2 /HPF (0-2); WBC,URINE 0-4 /HPF (0-4)
[2022-11-16 20:10] VITALS: BP 144/85
[2022-11-16 21:10] VITALS: BP 144/77
[2022-11-16 22:59] VITALS: BP 131/85
== END 2022-11-16 23:00 | disposition home or self-care (01) ==
LOC: ER 15:22
DX: D64.89 Other specified anemias (principal); I10 Essential (primary) hypertension; Z88.0 Allergy status to penicillin; Z88.1 Allergy status to other antibiotic agents
CPT/HCPCS: 36415; 36430; 71045; 80053; 81001; 85008; 85025; 85610; 85730; 86885; 86900; 86901; 86920; 93005; 96374; 99291; J3490; P9016

== ENCOUNTER 2023-09-27 14:24 | Outpatient (CLI) | payer MEDICAID | END 2023-09-27 23:59 | disposition home or self-care (01) | LOC: MRI 14:24 | PROVIDERS: ATTEND Podiatrist Foot & Ankle Surgery | DX: S90.922A Unspecified superficial injury of left foot, initial encounter (principal); M65.872 Other synovitis and tenosynovitis, left ankle and foot; M21.6X2 Other acquired deformities of left foot; M25.472 Effusion, left ankle; M79.672 Pain in left foot; G62.9 Polyneuropathy, unspecified; X58.XXXA Exposure to other specified factors, initial encounter; Y93.89 Activity, other specified; Y92.89 Other specified places as the place of occurrence of the external cause; Y99.8 Other external cause status | CPT/HCPCS: 73718 ==

== ENCOUNTER 2023-12-01 15:14 | Emergency (ER) | payer MEDICAID ==
[~2023-12-01] VITALS: Ht 177.8 cm; Wt 144.6 kg
[2023-12-01 15:54] LABS: HEMOGLOBIN 9.3 g/dl (14.0-17.9); MEAN PLATELET VOLUME 7.5 FL (7.4-10.4)
[2023-12-01 15:56] LABS: HEMATOCRIT 28.9 % (42.0-52.0); MEAN CORPUSCULAR HEMOGLOBIN 26.7 PG (27.0-31.0); MEAN CORPUSCULAR HGB CONC 32.3 g/dL (33.0-36.5); MEAN CORPUSCULAR VOLUME 82.5 FL (78-98); PLATELET COUNT 200 X10'3 (140-440); RED BLOOD COUNT 3.51 X10'6 (4.70-6.10); RED CELL DISTRIBUTION WIDTH 18.3 % (11.5-14.5); WHITE BLOOD COUNT 6.3 X10'3 (4.5-11.0)
[2023-12-01 16:10] LABS: ALANINE AMINOTRANSFERASE 24 U/L (12-78); ALBUMIN 3.4 G/DL (3.4-5.0); ALBUMIN/GLOBULIN RATIO 0.7 (1.1-1.5); ALKALINE PHOSPHATASE 109 IU/L (46-116); ANION GAP 15 (8-16); ASPARTATE AMINO TRANSFERASE 13 U/L (10-37); BILIRUBIN,TOTAL 0.4 MG/DL (0.1-1.0); BLOOD UREA NITROGEN 47 MG/DL (7-18); CALCIUM 8.5 MG/DL (8.5-10.1); CHLORIDE 108 MMOL/L (99-107); CREATININE 3.93 MG/DL (0.60-1.10); GLUCOSE 100 MG/DL (70-104); SODIUM 141 MMOL/L (135-145); TOTAL CARBON DIOXIDE 18.4 MMOL/L (24-32); eCRCL 21 ML/MIN; eGFR 16 ML/MIN
[2023-12-01 16:22] LABS: ELLIPTOCYTES FEW; PLATELET ESTIMATE NORMAL; TOTAL CELLS COUNTED 100
[2023-12-01 16:23] LABS: ACANTHOCYTES FEW
[2023-12-01 16:47] LABS: % IRON SATURATION 18 % (11-46); IRON 41 UG/DL (53-167); TOTAL IRON BINDING CAPACITY 225 UG/DL (259-388)
[2023-12-01 17:42] VITALS: BP 171/82; PULSE 94; RESP 14; TEMP 98.6; O2SAT 98
== END 2023-12-01 17:45 | disposition home or self-care (01) ==
LOC: ER 15:14
DX: D64.9 Anemia, unspecified (principal); R79.89 Other specified abnormal findings of blood chemistry; I10 Essential (primary) hypertension; Z88.0 Allergy status to penicillin; Z88.1 Allergy status to other antibiotic agents; Z79.899 Other long term (current) drug therapy; Z79.2 Long term (current) use of antibiotics
CPT/HCPCS: 36415; 80053; 83540; 83550; 85007; 85025; 99283

== ENCOUNTER 2023-12-23 10:40 | Outpatient (CLI) | payer MEDICAID | END 2023-12-23 23:59 | disposition home or self-care (01) | LOC: 64 CT 10:40 | PROVIDERS: ATTEND Podiatrist Foot & Ankle Surgery | DX: S91.302A Unspecified open wound, left foot, initial encounter (principal); M79.89 Other specified soft tissue disorders; M79.672 Pain in left foot; M25.472 Effusion, left ankle; G62.9 Polyneuropathy, unspecified; Q66.70 Congenital pes cavus, unspecified foot; X58.XXXA Exposure to other specified factors, initial encounter; Y93.89 Activity, other specified; Y92.89 Other specified places as the place of occurrence of the external cause; Y99.8 Other external cause status | CPT/HCPCS: 73700 ==

== ENCOUNTER 2024-03-30 16:00 | Outpatient (CLI) | payer MEDICAID ==
[2024-05-24] MEDS ORDERED: VITAMIN D3 (16:37)
== END 2024-03-30 23:59 | disposition home or self-care (01) ==
LOC: MRI02 16:00
PROVIDERS: ATTEND Podiatrist Foot & Ankle Surgery
DX: S93.692A Other sprain of left foot, initial encounter (principal); M79.672 Pain in left foot; M25.472 Effusion, left ankle; Q66.72 Congenital pes cavus, left foot; G62.9 Polyneuropathy, unspecified; X58.XXXA Exposure to other specified factors, initial encounter; Y93.89 Activity, other specified; Y92.89 Other specified places as the place of occurrence of the external cause; Y99.8 Other external cause status
CPT/HCPCS: 73721

== ENCOUNTER 2024-04-12 07:30 | Inpatient (IN) | payer MEDICAID ==
[~2024-04-12] VITALS: Ht 180.3 cm; Wt 140.3 kg
[~2024-04-12 07:30] MED LIST changes: -CIPR250T26 PO; -CLIN-97 PO; -FLUT16SP2 BOTHNARES; -FOLI1TAB27 PO; -KETO5DRO75; -POTA-366 PO; -TADA5TAB2 PO; -WARF-55 PO
[2024-05-24 14:21] LABS: BASOPHILS # (AUTO) 0.1 X10'3 (0-0.2); BASOPHILS % (AUTO) 1.2 % (0-1); EOSINOPHILS # (AUTO) 0.2 X10'3 (0-0.9); EOSINOPHILS % (AUTO) 2.7 % (0-6); LYMPHOCYTES # (AUTO) 0.9 X10'3 (1.1-4.8); LYMPHOCYTES % (AUTO) 15.3 % (21-51); MEAN CORPUSCULAR HEMOGLOBIN 29.5 PG (27.0-31.0); MEAN CORPUSCULAR HGB CONC 33.3 g/dL (33.0-36.5); MEAN CORPUSCULAR VOLUME 88.7 FL (78-98); MEAN PLATELET VOLUME 7.4 FL (7.4-10.4); MONOCYTES # (AUTO) 0.6 X10'3 (0-0.9); MONOCYTES % (AUTO) 11.1 % (2-12); NEUTROPHILS # (AUTO) 4.1 X10'3 (1.8-7.7); NEUTROPHILS % (AUTO) 69.7 % (42-75); PRE OP HEMATOCRIT 26.1 % (42.0-52.0); PRE OP PLATELET COUNT 206 X10'3 (140-440); PRE OP WHITE BLOOD COUNT 5.8 10'3 (4.8-10.8); RED BLOOD COUNT 2.95 X10'6 (4.70-6.10)
[2024-05-24 14:36] LABS: ALBUMIN 3.3 G/DL (3.4-5.0); ALBUMIN/GLOBULIN RATIO 0.8 (1.1-1.5); ALKALINE PHOSPHATASE 100 IU/L (46-116); BLOOD UREA NITROGEN 56 MG/DL (7-18); CALCIUM 8.2 MG/DL (8.5-10.1); CHLORIDE 111 MMOL/L (99-107); CREATININE 4.66 MG/DL (0.60-1.10); PRE OP ALT 15 U/L (30-65); PRE OP ANION GAP 12 (8-16); PRE OP AST 7 U/L (10-37); PRE OP BILIRUB, TOTAL 0.3 MG/DL (0.0-1.0); PRE OP GLUCOSE 96 MG/DL (70-104); PRE OP POTASSIUM 4.4 MMOL/L (3.4-5.1); PRE OP SODIUM 141 MMOL/L (135-145); TOTAL CARBON DIOXIDE 17.6 MMOL/L (24-32); TOTAL PROTEIN 7.7 G/DL (6.4-8.2); eGFR 13 ML/MIN
[2024-05-24] MEDS ORDERED: LISI40TA13 PO (16:35)
[2024-05-24] MEDS ORDERED: DOXA4TAB94 PO (16:35)
[2024-05-24] MEDS ORDERED: WARF6TAB49 PO (16:37)
[2024-05-25 14:59] LABS: PRE OP HEMOGLOBIN 8.7 g/dL (14.0-17.9)
[2024-05-29] MEDS ORDERED: CHOL500044 PO (12:50)
[2024-05-31] VITALS (15 sets, daily range): BP systolic 119–154; BP diastolic 76–90; PULSE 80–118; RESP 12–21; TEMP 97.5–98.3; O2SAT 96–100
[2024-05-31] MEDS: DOCUMENT DATE & TIME OF BETA-BLOCKER PO ONE (08:00)
[2024-05-31] MEDS: normal saline 500ml IV soln 500 ML IV SCH (10:30)
[2024-05-31] MEDS: famotidine 20mg tablet PO ONE (10:31)
[2024-05-31 11:43] LABS: INR 1.2 INR; PRE OP PARTIAL THROMB. TIME 27 SECONDS (22-32); PROTHROMBIN TIME 12.4 SECONDS (9.0-12.0)
[2024-05-31] MEDS ORDERED: BUPIVACAINE liposomal/PF 13.3 MG/ML vial IM ONE (12:34)
[2024-05-31] MEDS ORDERED: BUPIVAcaine/PF 5 mg/ml 10ml ONE (12:34)
[2024-05-31] MEDS ORDERED: BUPIVAcaine 0.5% inj/PF 30 ML ONE (12:34)
[2024-05-31] MEDS ORDERED: propofol inj 20 ML IV ONE (12:45)
[2024-05-31] MEDS ORDERED: LIDOcaine 2% (20mg/ml) 5ml vial ONE (12:45)
[2024-05-31] MEDS ORDERED: BUPIVAcaine/PF 2.5mg/ml (0.25%) 10ml vial ONE (12:57)
[2024-05-31] MEDS ORDERED: bacitracin 15gm ointment TP ONE (12:57)
[2024-05-31] MEDS ORDERED: labetalol 20mg/4ml (5mg/ml) syringe IV PRN (13:20)
[2024-05-31] MEDS ORDERED: morphine 2 MG/ML inj. syringe IV PRN (13:20)
[2024-05-31] MEDS ORDERED: fentaNYL/PF 50MCG/1 ML 2ML syringe IV PRN ×2 (13:20)
[2024-05-31] MEDS ORDERED: morphine 4 MG/ML inj SYRINge IV PRN (13:20)
[2024-05-31] MEDS ORDERED: hydrALAZINE 20mg/ml inj. IV PRN (13:20)
[2024-05-31] MEDS ORDERED: ondansetron/PF 4mg/2ml inj IV PRN ×2 (13:20→19:20)
[2024-05-31] MEDS ORDERED: sevoflurane 250ml liquid IH ONE (13:30)
[2024-05-31] MEDS ORDERED: fentaNYL/PF 50MCG/1 ML 2ML syringe ONE (13:39)
[2024-05-31] MEDS ORDERED: midazolam 1 mg/ML 2ml injection ONE (13:39)
[2024-05-31] MEDS ORDERED: vancomycin 1,000mg inj ONE (13:46)
[2024-05-31] MEDS ORDERED: albumin (Human) 5% 250ml 250 ML IV ONE ×2 (14:08→18:39)
[2024-05-31] MEDS ORDERED: ondansetron/PF 4mg/2ml inj ONE (14:14)
[2024-05-31] MEDS ORDERED: labetalol 20mg/4ml (5mg/ml) syringe IV ONE ×2 (14:14→14:24)
[2024-05-31] MEDS ORDERED: epiNEPHrine 1 mg/ml inj ONE (16:29)
[2024-05-31] MEDS ORDERED: mupirocin 2% ointment 22GM ONE (19:01)
[2024-05-31] MEDS ORDERED: povidone-iodine 10% ointment 1 APPLIC APPLIC TP ONE (19:02)
[2024-05-31] MEDS ORDERED: magnesium sulf-water 2g/50mL 50 ML IV PRN (19:20)
[2024-05-31] MEDS ORDERED: magnesium Cl slow-release 64mg tablet PO PRN (19:20)
[2024-05-31] MEDS ORDERED: potassium Cl 40MEQ/1/2NS 520ml 520 ML IV PRN (19:20)
[2024-05-31] MEDS ORDERED: magnesium sulf-water 4G/100mL 100 ML IV PRN (19:20)
[2024-05-31] MEDS ORDERED: acetaminophen 325mg tablet PO PRN (19:20)
[2024-05-31] MEDS ORDERED: potassium Cl 20 mEq SR tablet PO PRN ×2 (19:20)
[2024-05-31] MEDS: ringers solution, lacted 1,000 ML IV SCH ×2 (19:27→19:35)
[2024-05-31 19:56] LABS: BASOPHILS % (AUTO) 0.6 % (0-1); EOSINOPHILS % (AUTO) 0.1 % (0-6); HEMOGLOBIN 7.1 g/dl (14.0-17.9); LYMPHOCYTES # (AUTO) 0.3 X10'3 (1.1-4.8); LYMPHOCYTES % (AUTO) 3.6 % (21-51); MEAN CORPUSCULAR HEMOGLOBIN 30.2 PG (27.0-31.0); MEAN CORPUSCULAR HGB CONC 34.1 g/dL (33.0-36.5); MEAN CORPUSCULAR VOLUME 88.5 FL (78-98); MEAN PLATELET VOLUME 7.3 FL (7.4-10.4); MONOCYTES # (AUTO) 0.2 X10'3 (0-0.9); MONOCYTES % (AUTO) 3.4 % (2-12); NEUTROPHILS # (AUTO) 6.7 X10'3 (1.8-7.7); NEUTROPHILS % (AUTO) 92.3 % (42-75); PLATELET COUNT 177 X10'3 (140-440); RED BLOOD COUNT 2.34 X10'6 (4.70-6.10); RED CELL DISTRIBUTION WIDTH 17.3 % (11.5-14.5); WHITE BLOOD COUNT 7.3 X10'3 (4.5-11.0)
[2024-05-31] MEDS: K and/or MAG REPLACEMENT MC SCH (20:00)
[2024-05-31 20:02] LABS: HEMATOCRIT 20.7 % (42.0-52.0)
[2024-05-31 20:14] LABS: ALANINE AMINOTRANSFERASE 8 U/L (12-78); ALBUMIN 3.1 G/DL (3.4-5.0); ALBUMIN/GLOBULIN RATIO 0.8 (1.1-1.5); ALKALINE PHOSPHATASE 72 IU/L (46-116); ANION GAP 13 (8-16); ASPARTATE AMINO TRANSFERASE 8 U/L (10-37); BILIRUBIN,TOTAL 0.5 MG/DL (0.1-1.0); BLOOD UREA NITROGEN 55 MG/DL (7-18); BUN/CREATININE RATIO 11.8 (10.0-20.0); CALCIUM 7.7 MG/DL (8.5-10.1); CHLORIDE 115 MMOL/L (99-107); CREATININE 4.68 MG/DL (0.60-1.10); GLUCOSE 120 MG/DL (70-104); MAGNESIUM 1.9 MG/DL (1.5-2.4); POTASSIUM 4.3 MMOL/L (3.5-5.1); SODIUM 143 MMOL/L (135-145); TOTAL PROTEIN 6.8 G/DL (6.4-8.2); eCRCL 18 ML/MIN; eGFR 13 ML/MIN
[2024-05-31] MEDS ORDERED: WARFARIN SODIUM 6 MG PO SCH (21:00)
[2024-05-31] MEDS: carVEDilol 12.5mg tablet PO SCH (22:18)
[2024-05-31] MEDS: docusate sod 100mg capsule PO SCH (22:18)
[2024-05-31] MEDS: lisinopril 20mg tablet PO SCH (22:19)
[2024-05-31] MEDS: doxazosin mesylate 2mg tablet PO SCH (22:20)
[2024-05-31] MEDS: VANCOMYCIN/WATER FOR INJ (PEG) 750MG/150 ML IVPB IV SCH (22:20)
[2024-05-31] MEDS: NIFEdipine XL 30mg tablet PO SCH (22:21)
[2024-05-31] MEDS: ferrous sulfate 325mg tablet PO SCH (22:21)
[2024-05-31] MEDS: pantoprazole 40mg Tablet.DR PO SCH (22:22)
[2024-05-31] MEDS: HYDROcodone/acetaminophen 10/325mg tab PO PRN (22:23)
[2024-06-01] VITALS (18 sets, daily range): BP systolic 92–151; BP diastolic 50–83; PULSE 89–111; RESP 14–20; TEMP 97.7–98.8; O2SAT 94–98
[2024-06-01] MEDS ORDERED: VANCOMYCIN 1,500MG inj. 1,500 MG in normal saline 500ml IV soln 300 ML IV SCH
[2024-06-01] MEDS: sodium bicarbonate (8.4%) inj. 100 MEQ in dextrose 5%-water 1,000 ML IV SCH (01:26)
[2024-06-01 01:41] LABS: MEAN CORPUSCULAR HEMOGLOBIN 29.9 PG (27.0-31.0); MEAN CORPUSCULAR HGB CONC 33.4 g/dL (33.0-36.5); MEAN CORPUSCULAR VOLUME 89.7 FL (78-98); MEAN PLATELET VOLUME 7.6 FL (7.4-10.4); PLATELET COUNT 169 X10'3 (140-440); RED BLOOD COUNT 2.05 X10'6 (4.70-6.10); RED CELL DISTRIBUTION WIDTH 17.1 % (11.5-14.5); WHITE BLOOD COUNT 12.5 X10'3 (4.5-11.0)
[2024-06-01 01:53] LABS: HEMATOCRIT 18.4 % (42.0-52.0); HEMOGLOBIN 6.1 g/dl (14.0-17.9)
[2024-06-01] MEDS: cholecalciferol (vitamin D3) 1,000 unit (25mcg) tablet PO SCH (07:10)
[2024-06-01] MEDS ORDERED: pantoprazole 40mg Tablet.DR PO SCH (08:00)
[2024-06-01] MEDS: PERFLUTREN PROTEIN-A MICROSPHR (Optison) 0.22 MG/ML 3ML VIAL IV ONE (08:10)
[2024-06-01 08:41] LABS: ABG BASE EXCESS -11.3 mmol/L (-2.0-3.0); ABG HCO3 13.8 mmol/L (21.0-28.0); ABG PCO2 (T) 27.4 mmHg (35.0-48.0); ABG PH (T) 7.319 (7.350-7.450); ABG PO2 (T) 74.8 mmHg (83.0-108.0); ALLEN'S TEST Yes; FCOHb 0.8 % (0.5-1.5); FHHb 4.9 % (0.0-5.0); FMetHb 0.3 % (0.0-1.5); MODE ROOM AIR; TOTAL HEMOGLOBIN 6.8 G/dl (13.5-17.5)
[2024-06-01 10:00] LABS: INR 1.3 INR; PROTHROMBIN TIME 13.2 SECONDS (9.0-12.0)
[2024-06-01 10:14] LABS: ALANINE AMINOTRANSFERASE 9 U/L (12-78); ALBUMIN 2.6 G/DL (3.4-5.0); ALBUMIN/GLOBULIN RATIO 0.8 (1.1-1.5); ALKALINE PHOSPHATASE 57 IU/L (46-116); ANION GAP 14 (8-16); ASPARTATE AMINO TRANSFERASE 2 U/L (10-37); BILIRUBIN,TOTAL 0.5 MG/DL (0.1-1.0); BLOOD UREA NITROGEN 60 MG/DL (7-18); BUN/CREATININE RATIO 12.7 (10.0-20.0); CALCIUM 7.6 MG/DL (8.5-10.1); CHLORIDE 112 MMOL/L (99-107); CREATININE 4.71 MG/DL (0.60-1.10); GLUCOSE 152 MG/DL (70-104); MAGNESIUM 1.8 MG/DL (1.5-2.4); POTASSIUM 3.9 MMOL/L (3.5-5.1); SODIUM 141 MMOL/L (135-145); TOTAL CARBON DIOXIDE 15.2 MMOL/L (24-32); TOTAL PROTEIN 5.8 G/DL (6.4-8.2); eCRCL 18 ML/MIN; eGFR 13 ML/MIN
[2024-06-01 10:19] LABS: BASOPHILS % (AUTO) 0.1 % (0-1); EOSINOPHILS % (AUTO) 0.2 % (0-6); LYMPHOCYTES # (AUTO) 0.2 X10'3 (1.1-4.8); LYMPHOCYTES % (AUTO) 1.6 % (21-51); MEAN CORPUSCULAR HEMOGLOBIN 29.6 PG (27.0-31.0); MEAN CORPUSCULAR HGB CONC 33.3 g/dL (33.0-36.5); MONOCYTES # (AUTO) 1.1 X10'3 (0-0.9); MONOCYTES % (AUTO) 7.3 % (2-12); NEUTROPHILS # (AUTO) 13.2 X10'3 (1.8-7.7); NEUTROPHILS % (AUTO) 90.8 % (42-75); PLATELET COUNT 174 X10'3 (140-440); RED BLOOD COUNT 2.19 X10'6 (4.70-6.10); RED CELL DISTRIBUTION WIDTH 16.8 % (11.5-14.5); WHITE BLOOD COUNT 14.5 X10'3 (4.5-11.0)
[2024-06-01 10:27] LABS: HEMATOCRIT 19.5 % (42.0-52.0); HEMOGLOBIN 6.5 g/dl (14.0-17.9)
[2024-06-01] MEDS: warfarin 3mg tablet PO ONE (21:00)
[2024-06-01] MEDS: warfarin 4mg tablet PO ONE (22:12)
[2024-06-01 22:40] LABS: MEAN CORPUSCULAR HEMOGLOBIN 29.8 PG (27.0-31.0); MEAN CORPUSCULAR HGB CONC 33.7 g/dL (33.0-36.5); MEAN CORPUSCULAR VOLUME 88.4 FL (78-98); MEAN PLATELET VOLUME 7.3 FL (7.4-10.4); PLATELET COUNT 165 X10'3 (140-440); RED BLOOD COUNT 2.34 X10'6 (4.70-6.10); WHITE BLOOD COUNT 13.3 X10'3 (4.5-11.0)
[2024-06-01 22:45] LABS: HEMATOCRIT 20.7 % (42.0-52.0)
[2024-06-02] MEDS: mag hydrox/Alum hydrox/simeth 30ml oral suspension PO PRN (04:36)
[2024-06-02 06:00] VITALS: BP 125/82; PULSE 89; RESP 16; TEMP 98.4; O2SAT 98
[2024-06-02 06:27] LABS: MEAN CORPUSCULAR HEMOGLOBIN 29.6 PG (27.0-31.0); MEAN CORPUSCULAR HGB CONC 33.5 g/dL (33.0-36.5); MEAN CORPUSCULAR VOLUME 88.3 FL (78-98); MEAN PLATELET VOLUME 7.6 FL (7.4-10.4); PLATELET COUNT 144 X10'3 (140-440); RED BLOOD COUNT 2.07 X10'6 (4.70-6.10); WHITE BLOOD COUNT 13.8 X10'3 (4.5-11.0)
[2024-06-02 06:30] LABS: HEMOGLOBIN 6.1 g/dl (14.0-17.9); INR 1.3 INR; PROTHROMBIN TIME 13.6 SECONDS (9.0-12.0)
[2024-06-02 06:31] LABS: HEMATOCRIT 18.3 % (42.0-52.0)
[2024-06-02 06:47] LABS: ALANINE AMINOTRANSFERASE 8 U/L (12-78); ALBUMIN 2.5 G/DL (3.4-5.0); ALBUMIN/GLOBULIN RATIO 0.7 (1.1-1.5); ALKALINE PHOSPHATASE 55 IU/L (46-116); ANION GAP 16 (8-16); ASPARTATE AMINO TRANSFERASE 4 U/L (10-37); BILIRUBIN,TOTAL 0.4 MG/DL (0.1-1.0); BLOOD UREA NITROGEN 62 MG/DL (7-18); BUN/CREATININE RATIO 12.6 (10.0-20.0); CALCIUM 7.6 MG/DL (8.5-10.1); CHLORIDE 109 MMOL/L (99-107); CREATININE 4.91 MG/DL (0.60-1.10); GLUCOSE 122 MG/DL (70-104); MAGNESIUM 1.8 MG/DL (1.5-2.4); POTASSIUM 3.6 MMOL/L (3.5-5.1); SODIUM 141 MMOL/L (135-145); TOTAL CARBON DIOXIDE 16.5 MMOL/L (24-32); TOTAL PROTEIN 6.1 G/DL (6.4-8.2); eCRCL 17 ML/MIN; eGFR 12 ML/MIN
[2024-06-02 07:00] VITALS: RESP 18
[2024-06-02 10:00] VITALS: BP 125/69; PULSE 87; RESP 17; TEMP 97.7; O2SAT 93
[2024-06-02] MEDS: lisinopril 20mg tablet PO SCH (10:23)
[2024-06-02] MEDS ORDERED: polyethylene glycol 3350 17gm powd pack PO PRN (12:35)
[2024-06-02 14:27] VITALS: BP 127/65; PULSE 98; RESP 16; TEMP 97.8
[2024-06-02 18:30] VITALS: BP 141/81; PULSE 103; RESP 15; TEMP 98.8; O2SAT 96
[2024-06-02 20:28] LABS: HEMATOCRIT 25.2 % (42.0-52.0); HEMOGLOBIN 8.3 g/dl (14.0-17.9); MEAN CORPUSCULAR HEMOGLOBIN 30.4 PG (27.0-31.0); MEAN CORPUSCULAR VOLUME 92.1 FL (78-98); MEAN PLATELET VOLUME 7.5 FL (7.4-10.4); PLATELET COUNT 151 X10'3 (140-440); RED BLOOD COUNT 2.74 X10'6 (4.70-6.10); RED CELL DISTRIBUTION WIDTH 16.9 % (11.5-14.5); WHITE BLOOD COUNT 11.7 X10'3 (4.5-11.0)
[2024-06-02] MEDS: warfarin 3mg tablet PO ONE (21:07)
[2024-06-02 22:00] VITALS: BP 141/81; PULSE 120; RESP 16; TEMP 99.2; O2SAT 96
[2024-06-03 06:00] VITALS: BP 126/69; PULSE 105; RESP 16; TEMP 98.8; O2SAT 93
[2024-06-03 07:00] VITALS: RESP 16; O2SAT 93
[2024-06-03 08:43] LABS: INR 1.6 INR; PROTHROMBIN TIME 16.4 SECONDS (9.0-12.0)
[2024-06-03 09:18] LABS: ALBUMIN 2.5 G/DL (3.4-5.0); ALBUMIN/GLOBULIN RATIO 0.8 (1.1-1.5); ALKALINE PHOSPHATASE 54 IU/L (46-116); ANION GAP 12 (8-16); ASPARTATE AMINO TRANSFERASE 5 U/L (10-37); BILIRUBIN,TOTAL 0.5 MG/DL (0.1-1.0); BLOOD UREA NITROGEN 60 MG/DL (7-18); CALCIUM 7.5 MG/DL (8.5-10.1); CHLORIDE 110 MMOL/L (99-107); CREATININE 4.98 MG/DL (0.60-1.10); GLUCOSE 102 MG/DL (70-104); MAGNESIUM 1.8 MG/DL (1.5-2.4); POTASSIUM 3.5 MMOL/L (3.5-5.1); SODIUM 141 MMOL/L (135-145); TOTAL CARBON DIOXIDE 18.8 MMOL/L (24-32); TOTAL PROTEIN 5.8 G/DL (6.4-8.2); eCRCL 17 ML/MIN; eGFR 12 ML/MIN
[2024-06-03 09:20] LABS: ALANINE AMINOTRANSFERASE < 6 U/L (12-78)
[2024-06-03 10:00] VITALS: BP 124/63; PULSE 102; RESP 16; TEMP 98.4; O2SAT 92
[2024-06-03 13:29] LABS: BASOPHILS % (AUTO) 0.1 % (0-1); EOSINOPHILS # (AUTO) 0.6 X10'3 (0-0.9); EOSINOPHILS % (AUTO) 5.9 % (0-6); HEMOGLOBIN 8.5 g/dl (14.0-17.9); LYMPHOCYTES # (AUTO) 0.3 X10'3 (1.1-4.8); LYMPHOCYTES % (AUTO) 2.8 % (21-51); MEAN CORPUSCULAR HEMOGLOBIN 30.4 PG (27.0-31.0); MEAN CORPUSCULAR HGB CONC 34.1 g/dL (33.0-36.5); MEAN CORPUSCULAR VOLUME 89.1 FL (78-98); MEAN PLATELET VOLUME 7.7 FL (7.4-10.4); MONOCYTES # (AUTO) 0.8 X10'3 (0-0.9); MONOCYTES % (AUTO) 7.2 % (2-12); NEUTROPHILS # (AUTO) 8.8 X10'3 (1.8-7.7); PLATELET COUNT 180 X10'3 (140-440); RED BLOOD COUNT 2.81 X10'6 (4.70-6.10); RED CELL DISTRIBUTION WIDTH 16.5 % (11.5-14.5); WHITE BLOOD COUNT 10.5 X10'3 (4.5-11.0)
[2024-06-03 13:43] LABS: ALANINE AMINOTRANSFERASE 8 U/L (12-78); ALBUMIN 2.5 G/DL (3.4-5.0); ALBUMIN/GLOBULIN RATIO 0.8 (1.1-1.5); ALKALINE PHOSPHATASE 61 IU/L (46-116); ANION GAP 14 (8-16); ASPARTATE AMINO TRANSFERASE 5 U/L (10-37); BILIRUBIN,TOTAL 0.5 MG/DL (0.1-1.0); BLOOD UREA NITROGEN 60 MG/DL (7-18); CALCIUM 7.6 MG/DL (8.5-10.1); CHLORIDE 107 MMOL/L (99-107); CREATININE 4.98 MG/DL (0.60-1.10); GLUCOSE 113 MG/DL (70-104); POTASSIUM 3.4 MMOL/L (3.5-5.1); SODIUM 140 MMOL/L (135-145); TOTAL PROTEIN 5.7 G/DL (6.4-8.2); eCRCL 17 ML/MIN; eGFR 12 ML/MIN
[2024-06-03 14:01] LABS: % IRON SATURATION 10 % (11-46); IRON 13 UG/DL (53-167); TOTAL IRON BINDING CAPACITY 128 UG/DL (259-388)
[2024-06-03 18:00] VITALS: BP 107/77; PULSE 96; RESP 14; TEMP 99.4; O2SAT 97
[2024-06-03] MEDS: diphenhydrAMINE 25mg capsule PO PRN (19:39)
[2024-06-03] MEDS: VANCOMYCIN LEVEL IV ONE (20:30)
[2024-06-03] MEDS: diphenhydrAMINE 2%/zinc acetate cream TP SCH (21:00)
[2024-06-03 21:39] VITALS: BP 139/75; PULSE 107; RESP 18; TEMP 99.2; O2SAT 98
[2024-06-03] MEDS: warfarin 3mg tablet PO ONE (21:55)
[2024-06-03] MEDS: doxycycline inj 100 MG in normal saline 100ml IV soln 100 ML IV SCH (21:57)
[2024-06-04 06:00] VITALS: BP 142/69; PULSE 107; RESP 16; TEMP 98.9; O2SAT 96
[2024-06-04 06:51] LABS: ALANINE AMINOTRANSFERASE 9 U/L (12-78); ALBUMIN 2.3 G/DL (3.4-5.0); ALBUMIN/GLOBULIN RATIO 0.7 (1.1-1.5); ALKALINE PHOSPHATASE 56 IU/L (46-116); ANION GAP 13 (8-16); ASPARTATE AMINO TRANSFERASE 5 U/L (10-37); BILIRUBIN,TOTAL 0.6 MG/DL (0.1-1.0); BLOOD UREA NITROGEN 61 MG/DL (7-18); BUN/CREATININE RATIO 12.6 (10.0-20.0); CALCIUM 7.8 MG/DL (8.5-10.1); CHLORIDE 107 MMOL/L (99-107); CREATININE 4.83 MG/DL (0.60-1.10); GLUCOSE 104 MG/DL (70-104); MAGNESIUM 1.8 MG/DL (1.5-2.4); POTASSIUM 3.3 MMOL/L (3.5-5.1); SODIUM 141 MMOL/L (135-145); TOTAL CARBON DIOXIDE 20.7 MMOL/L (24-32); TOTAL PROTEIN 5.4 G/DL (6.4-8.2); eCRCL 17 ML/MIN; eGFR 12 ML/MIN
[2024-06-04 08:00] VITALS: RESP 16; O2SAT 94
[2024-06-04 10:00] VITALS: BP 120/65; PULSE 112; RESP 16; TEMP 99.2; O2SAT 94
[2024-06-04 11:26] LABS: INR 1.5 INR; PROTHROMBIN TIME 15.2 SECONDS (9.0-12.0)
[2024-06-04] MEDS ORDERED: magnesium sulf-water 4G/100mL 100 ML IV PRN (11:55)
[2024-06-04] MEDS ORDERED: potassium Cl 20 mEq SR tablet PO PRN (11:55)
[2024-06-04] MEDS ORDERED: magnesium sulf-water 2g/50mL 50 ML IV PRN (11:55)
[2024-06-04] MEDS ORDERED: potassium Cl 40MEQ/1/2NS 520ml 520 ML IV PRN (11:55)
[2024-06-04 18:00] VITALS: BP 131/72; PULSE 118; RESP 16; TEMP 98.5; O2SAT 96
[2024-06-04] MEDS: K and/or MAG REPLACEMENT MC SCH (20:00)
[2024-06-04] MEDS: warfarin 3mg tablet PO ONE (21:30)
[2024-06-04 22:00] VITALS: BP 142/75; PULSE 117; RESP 18; TEMP 99.6; O2SAT 93
[2024-06-04] MEDS: potassium chloride 10mEq ER tablet PO PRN (23:04)
[2024-06-05] VITALS (7 sets, daily range): BP systolic 107–138; BP diastolic 55–68; PULSE 99–116; RESP 13–18; TEMP 98–98.7; O2SAT 94–97
[2024-06-05 06:57] LABS: ALBUMIN/GLOBULIN RATIO 0.6 (1.1-1.5); ALKALINE PHOSPHATASE 51 IU/L (46-116); ANION GAP 12 (8-16); ASPARTATE AMINO TRANSFERASE 9 U/L (10-37); BILIRUBIN,TOTAL 0.6 MG/DL (0.1-1.0); BLOOD UREA NITROGEN 62 MG/DL (7-18); BUN/CREATININE RATIO 12.6 (10.0-20.0); CALCIUM 7.3 MG/DL (8.5-10.1); CHLORIDE 106 MMOL/L (99-107); CREATININE 4.94 MG/DL (0.60-1.10); GLUCOSE 125 MG/DL (70-104); MAGNESIUM 1.9 MG/DL (1.5-2.4); POTASSIUM 3.5 MMOL/L (3.5-5.1); SODIUM 137 MMOL/L (135-145); TOTAL CARBON DIOXIDE 19.1 MMOL/L (24-32); TOTAL PROTEIN 5.4 G/DL (6.4-8.2); eCRCL 17 ML/MIN; eGFR 12 ML/MIN
[2024-06-05 06:59] LABS: ALANINE AMINOTRANSFERASE < 6 U/L (12-78)
[2024-06-05 07:04] LABS: INR 1.6 INR; PROTHROMBIN TIME 16.5 SECONDS (9.0-12.0)
[2024-06-05 08:17] LABS: BASOPHILS % (AUTO) 0.1 % (0-1); EOSINOPHILS # (AUTO) 0.7 X10'3 (0-0.9); EOSINOPHILS % (AUTO) 6.6 % (0-6); HEMATOCRIT 25.1 % (42.0-52.0); HEMOGLOBIN 8.3 g/dl (14.0-17.9); LYMPHOCYTES # (AUTO) 0.5 X10'3 (1.1-4.8); LYMPHOCYTES % (AUTO) 4.5 % (21-51); MEAN CORPUSCULAR HEMOGLOBIN 30.6 PG (27.0-31.0); MEAN CORPUSCULAR HGB CONC 33.2 g/dL (33.0-36.5); MEAN PLATELET VOLUME 8.4 FL (7.4-10.4); MONOCYTES # (AUTO) 0.9 X10'3 (0-0.9); MONOCYTES % (AUTO) 8.5 % (2-12); NEUTROPHILS # (AUTO) 8.7 X10'3 (1.8-7.7); NEUTROPHILS % (AUTO) 80.3 % (42-75); PLATELET COUNT 235 X10'3 (140-440); RED BLOOD COUNT 2.73 X10'6 (4.70-6.10); RED CELL DISTRIBUTION WIDTH 16.9 % (11.5-14.5); WHITE BLOOD COUNT 10.8 X10'3 (4.5-11.0)
[2024-06-05] MEDS: warfarin 3mg tablet PO ONE (20:31)
[2024-06-06 01:06] LABS: BILIRUBIN,URINE NEGATIVE (Neg); CLARITY,URINE CLEAR (Clear); COLOR,URINE YELLOW (Yellow); GLUCOSE, URINE NEGATIVE (Neg); KETONES,URINE NEGATIVE (Neg); LEUKOCYTE ESTERASE ,URINE NEGATIVE (Neg); NITRITES, URINE NEGATIVE (Neg); OCCULT BLOOD,URINE NEGATIVE (Neg); PH,URINE 5.5 (4.8-8.0); PROTEIN,URINE 30 mg/dl (Neg); UROBILINOGEN,URINE 0.2 E.U/dL (0.2-1.0)
[2024-06-06 01:12] LABS: UA COLLECTION TYPE NON-SPECIFIED
[2024-06-06 01:13] LABS: BACTERIA,URINE FEW /HPF (Neg); RBC,URINE NONE SEEN /HPF (0-2); SQUAMOUS EPITHELIAL CELL,UR FEW /LPF (FEW); WBC,URINE 0-4 /HPF (0-4)
[2024-06-06 06:00] VITALS: BP 115/66; PULSE 103; RESP 16; TEMP 97.9; O2SAT 93
[2024-06-06 06:16] LABS: INR 1.8 INR; PROTHROMBIN TIME 18.4 SECONDS (9.0-12.0)
[2024-06-06 06:17] LABS: ALANINE AMINOTRANSFERASE 9 U/L (12-78); ALBUMIN 2.1 G/DL (3.4-5.0); ALBUMIN/GLOBULIN RATIO 0.6 (1.1-1.5); ALKALINE PHOSPHATASE 57 IU/L (46-116); ANION GAP 13 (8-16); ASPARTATE AMINO TRANSFERASE 1 U/L (10-37); BILIRUBIN,TOTAL 0.5 MG/DL (0.1-1.0); BLOOD UREA NITROGEN 66 MG/DL (7-18); BUN/CREATININE RATIO 12.7 (10.0-20.0); CALCIUM 7.7 MG/DL (8.5-10.1); CHLORIDE 104 MMOL/L (99-107); CREATININE 5.18 MG/DL (0.60-1.10); GLUCOSE 119 MG/DL (70-104); MAGNESIUM 1.8 MG/DL (1.5-2.4); POTASSIUM 3.3 MMOL/L (3.5-5.1); SODIUM 138 MMOL/L (135-145); TOTAL CARBON DIOXIDE 21.5 MMOL/L (24-32); TOTAL PROTEIN 5.5 G/DL (6.4-8.2); eCRCL 16 ML/MIN; eGFR 11 ML/MIN
[2024-06-06 06:19] LABS: EOSINOPHILS # (AUTO) 0.9 X10'3 (0-0.9); HEMOGLOBIN 8.4 g/dl (14.0-17.9); LYMPHOCYTES # (AUTO) 0.6 X10'3 (1.1-4.8); RED CELL DISTRIBUTION WIDTH 16.5 % (11.5-14.5); WHITE BLOOD COUNT 12.8 X10'3 (4.5-11.0)
[2024-06-06 06:21] LABS: BASOPHILS % (AUTO) 0.3 % (0-1); EOSINOPHILS % (AUTO) 7.2 % (0-6); HEMATOCRIT 25.1 % (42.0-52.0); LYMPHOCYTES % (AUTO) 4.9 % (21-51); MEAN CORPUSCULAR HEMOGLOBIN 30.1 PG (27.0-31.0); MEAN CORPUSCULAR HGB CONC 33.3 g/dL (33.0-36.5); MEAN CORPUSCULAR VOLUME 90.5 FL (78-98); MONOCYTES # (AUTO) 1.2 X10'3 (0-0.9); MONOCYTES % (AUTO) 9.1 % (2-12); NEUTROPHILS % (AUTO) 78.5 % (42-75); PLATELET COUNT 212 X10'3 (140-440); RED BLOOD COUNT 2.78 X10'6 (4.70-6.10)
[2024-06-06] MEDS: normal saline 1000ml 1,000 ML IV SCH (07:40)
[2024-06-06] MEDS: potassium Cl 20 mEq SR tablet PO PRN (09:41)
[2024-06-06 10:00] VITALS: BP 107/53; PULSE 73; RESP 16; TEMP 98.6; O2SAT 93
[2024-06-06 10:12] VITALS: PULSE 95; RESP 17; O2SAT 92
[2024-06-06] MEDS: ringers solution, lacted 1,000 ML IV SCH (13:16)
[2024-06-06] MEDS: acetaminophen 325mg tablet PO PRN (17:44)
[2024-06-06 18:00] VITALS: BP 106/67; PULSE 108; RESP 18; TEMP 98.8; O2SAT 95
[2024-06-06] MEDS: NUT.TX.IMP.RENAL FXN,LAC-REDUC (Nepro) 237 ML VANILLA PO SCH (18:00)
[2024-06-06] MEDS: warfarin 3mg tablet PO ONE (20:05)
[2024-06-06] MEDS: docusate sod 100mg capsule PO SCH (20:08)
[2024-06-06 22:00] VITALS: BP 158/81; PULSE 121; RESP 15; TEMP 97.8; O2SAT 91
[2024-06-06] MEDS: furosemide 40mg/4ml inj IV ONE (23:35)
[2024-06-07] VITALS (14 sets, daily range): BP systolic 109–135; BP diastolic 56–85; PULSE 93–135; RESP 16–28; TEMP 96.8–98.4; O2SAT 84–94
[2024-06-07] MEDS: furosemide 40mg tablet PO ONE (00:49)
[2024-06-07 06:08] LABS: INR 2.3 INR; PROTHROMBIN TIME 22.9 SECONDS (9.0-12.0)
[2024-06-07 06:09] LABS: MAGNESIUM 1.9 MG/DL (1.5-2.4)
[2024-06-07 07:49] LABS: BASOPHILS % (AUTO) 0 % (0-1); EOSINOPHILS # (AUTO) 1.3 X10'3 (0-0.9); EOSINOPHILS % (AUTO) 8.4 % (0-6); HEMATOCRIT 26.4 % (42.0-52.0); HEMOGLOBIN 8.7 g/dl (14.0-17.9); LYMPHOCYTES # (AUTO) 1.6 X10'3 (1.1-4.8); LYMPHOCYTES % (AUTO) 10.9 % (21-51); MEAN CORPUSCULAR HEMOGLOBIN 29.7 PG (27.0-31.0); MEAN CORPUSCULAR HGB CONC 32.9 g/dL (33.0-36.5); MEAN CORPUSCULAR VOLUME 90.5 FL (78-98); MEAN PLATELET VOLUME 8.4 FL (7.4-10.4); MONOCYTES # (AUTO) 1.6 X10'3 (0-0.9); MONOCYTES % (AUTO) 10.6 % (2-12); NEUTROPHILS # (AUTO) 10.4 X10'3 (1.8-7.7); NEUTROPHILS % (AUTO) 70.1 % (42-75); PLATELET COUNT 237 X10'3 (140-440); RED BLOOD COUNT 2.92 X10'6 (4.70-6.10); RED CELL DISTRIBUTION WIDTH 16.6 % (11.5-14.5); WHITE BLOOD COUNT 14.9 X10'3 (4.5-11.0)
[2024-06-07 08:14] LABS: ALANINE AMINOTRANSFERASE 8 U/L (12-78); ALBUMIN 2.3 G/DL (3.4-5.0); ALBUMIN/GLOBULIN RATIO 0.6 (1.1-1.5); ALKALINE PHOSPHATASE 58 IU/L (46-116); ANION GAP 15 (8-16); ASPARTATE AMINO TRANSFERASE 10 U/L (10-37); BILIRUBIN,TOTAL 0.5 MG/DL (0.1-1.0); BLOOD UREA NITROGEN 72 MG/DL (7-18); BUN/CREATININE RATIO 13.3 (10.0-20.0); CALCIUM 7.7 MG/DL (8.5-10.1); CHLORIDE 106 MMOL/L (99-107); GLUCOSE 114 MG/DL (70-104); POTASSIUM 3.9 MMOL/L (3.5-5.1); SODIUM 141 MMOL/L (135-145); TOTAL CARBON DIOXIDE 19.7 MMOL/L (24-32); TOTAL PROTEIN 5.9 G/DL (6.4-8.2); eCRCL 15 ML/MIN; eGFR 11 ML/MIN
[2024-06-07] MEDS: HYDROcodone/acetaminophen 5mg/325mg tablet PO PRN (08:40)
[2024-06-07] MEDS: LidoCAINE 2% Topical Jelly 11mL syringe (UROJET) TOP ONE (10:46)
[2024-06-07] MEDS: magnesium hydroxide 30ml (MOM) UD suspension PO PRN (11:41)
[2024-06-07] MEDS: bisacodyl 10mg suppository rectal RC PRN (13:28)
[2024-06-07] MEDS ORDERED: mineral oil 133ml enema RC PRN (15:30)
[2024-06-07] MEDS: metoprolol tartrate 1mg/ml inj IV STA (16:00)
[2024-06-07] MEDS: diltiazem 30mg tablet PO SCH (19:09)
[2024-06-07] MEDS: warfarin 3mg tablet PO ONE (21:17)
[2024-06-08] VITALS (16 sets, daily range): BP systolic 120–157; BP diastolic 55–90; PULSE 77–112; RESP 13–23; TEMP 97.7–98.6; O2SAT 90–98
[2024-06-08 06:37] LABS: PROTHROMBIN TIME 28.7 SECONDS (9.0-12.0)
[2024-06-08 06:38] LABS: MAGNESIUM 2.5 MG/DL (1.5-2.4)
[2024-06-08] MEDS: heparin 1,000 units/ml 10ml inj IV ONE (07:10)
[2024-06-08] MEDS: EPOETIN ALFA-EPBX 20,000 UNIT/ML 1 ML MDV IV ONE (07:10)
[2024-06-08] MEDS: mannitol 12.5gm/50mL VIAL IV ONE (07:10)
[2024-06-08] MEDS: heparin 1,000unit/ml 10ml vial 10 ML IV ONE (07:10)
[2024-06-08] MEDS: heparin 1,000 units/ml 10ml inj HE ONE ×2 (07:10)
[2024-06-08] MEDS: LIDOcaine 1% (10mg/ml)w/preservative inj. 20ml MDV SQ ONE (13:40)
[2024-06-08 14:44] LABS: ABG BASE EXCESS -3.4 mmol/L (-2.0-3.0); ABG HCO3 20.7 mmol/L (21.0-28.0); ABG OXYGEN SATURATION 95.6 % (94.0-98.0); ABG PCO2 (T) 33.3 mmHg (35.0-48.0); ABG PH (T) 7.412 (7.350-7.450); ABG PO2 (T) 74.9 mmHg (83.0-108.0); ALLEN'S TEST POSITIVE; FCOHb 0.3 % (0.5-1.5); FHHb 4.4 % (0.0-5.0); FLOW 12 L/min; FMetHb 0.3 % (0.0-1.5); MODE HIGH FLOW; TOTAL HEMOGLOBIN 8.7 G/dl (13.5-17.5)
[2024-06-08 16:10] LABS: BASOPHILS # (AUTO) 0.2 X10'3 (0-0.2); BASOPHILS % (AUTO) 1.1 % (0-1); EOSINOPHILS % (AUTO) 6.2 % (0-6); HEMATOCRIT 26.6 % (42.0-52.0); HEMOGLOBIN 8.2 g/dl (14.0-17.9); LYMPHOCYTES # (AUTO) 3.2 X10'3 (1.1-4.8); LYMPHOCYTES % (AUTO) 19.8 % (21-51); MEAN CORPUSCULAR HGB CONC 30.8 g/dL (33.0-36.5); MEAN CORPUSCULAR VOLUME 97.3 FL (78-98); MEAN PLATELET VOLUME 8.2 FL (7.4-10.4); MONOCYTES # (AUTO) 1.1 X10'3 (0-0.9); MONOCYTES % (AUTO) 6.6 % (2-12); NEUTROPHILS # (AUTO) 10.7 X10'3 (1.8-7.7); NEUTROPHILS % (AUTO) 66.3 % (42-75); PLATELET COUNT 215 X10'3 (140-440); RED BLOOD COUNT 2.73 X10'6 (4.70-6.10); RED CELL DISTRIBUTION WIDTH 17.8 % (11.5-14.5); WHITE BLOOD COUNT 16.2 X10'3 (4.5-11.0)
[2024-06-08 16:15] LABS: ALANINE AMINOTRANSFERASE 11 U/L (12-78); ALBUMIN 2.4 G/DL (3.4-5.0); ALBUMIN/GLOBULIN RATIO 0.7 (1.1-1.5); ALKALINE PHOSPHATASE 61 IU/L (46-116); ANION GAP 13 (8-16); ASPARTATE AMINO TRANSFERASE 9 U/L (10-37); BILIRUBIN,TOTAL 0.5 MG/DL (0.1-1.0); BLOOD UREA NITROGEN 81 MG/DL (7-18); BUN/CREATININE RATIO 14.1 (10.0-20.0); CALCIUM 8.1 MG/DL (8.5-10.1); CHLORIDE 107 MMOL/L (99-107); CREATININE 5.73 MG/DL (0.60-1.10); GLUCOSE 109 MG/DL (70-104); POTASSIUM 4.1 MMOL/L (3.5-5.1); SODIUM 142 MMOL/L (135-145); TOTAL CARBON DIOXIDE 21.7 MMOL/L (24-32); TOTAL PROTEIN 5.8 G/DL (6.4-8.2); eCRCL 15 ML/MIN; eGFR 10 ML/MIN
[2024-06-09] VITALS (22 sets, daily range): BP systolic 103–163; BP diastolic 52–77; PULSE 82–116; RESP 16–22; TEMP 98–98.6; O2SAT 90–98
[2024-06-09] MEDS: warfarin 5mg tablet PO ONE (00:35)
[2024-06-09 06:08] LABS: INR 3.9 INR; PROTHROMBIN TIME 37.1 SECONDS (9.0-12.0)
[2024-06-09 08:45] LABS: BASOPHILS # (AUTO) 0.1 X10'3 (0-0.2); EOSINOPHILS # (AUTO) 1.3 X10'3 (0-0.9); EOSINOPHILS % (AUTO) 11.1 % (0-6); HEMATOCRIT 24.9 % (42.0-52.0); HEMOGLOBIN 8.2 g/dl (14.0-17.9); LYMPHOCYTES # (AUTO) 2.1 X10'3 (1.1-4.8); LYMPHOCYTES % (AUTO) 17.8 % (21-51); MEAN CORPUSCULAR HEMOGLOBIN 30.1 PG (27.0-31.0); MEAN CORPUSCULAR HGB CONC 33.1 g/dL (33.0-36.5); MEAN CORPUSCULAR VOLUME 90.9 FL (78-98); MEAN PLATELET VOLUME 7.5 FL (7.4-10.4); MONOCYTES # (AUTO) 0.9 X10'3 (0-0.9); NEUTROPHILS # (AUTO) 7.2 X10'3 (1.8-7.7); NEUTROPHILS % (AUTO) 62.1 % (42-75); PLATELET COUNT 243 X10'3 (140-440); RED BLOOD COUNT 2.74 X10'6 (4.70-6.10); RED CELL DISTRIBUTION WIDTH 16.4 % (11.5-14.5); WHITE BLOOD COUNT 11.6 X10'3 (4.5-11.0)
[2024-06-09 08:51] LABS: ALBUMIN 2.3 G/DL (3.4-5.0); ANION GAP 13 (8-16); BLOOD UREA NITROGEN 62 MG/DL (7-18); BUN/CREATININE RATIO 12.9 (10.0-20.0); CALCIUM 8.3 MG/DL (8.5-10.1); CHLORIDE 109 MMOL/L (99-107); CREATININE 4.81 MG/DL (0.60-1.10); GLUCOSE 95 MG/DL (70-104); POTASSIUM 3.7 MMOL/L (3.5-5.1); SODIUM 144 MMOL/L (135-145); TOTAL CARBON DIOXIDE 22.2 MMOL/L (24-32); eCRCL 17 ML/MIN; eGFR 12 ML/MIN
[2024-06-09] MEDS: heparin 1,000unit/ml 10ml vial 10 ML IV ONE (20:07)
[2024-06-09] MEDS: heparin 1,000 units/ml 10ml inj HE ONE ×2 (20:08)
[2024-06-09] MEDS: heparin 1,000 units/ml 10ml inj IV ONE (20:09)
[2024-06-09] MEDS: EPOETIN ALFA-EPBX 20,000 UNIT/ML 1 ML MDV IV ONE (20:10)
[2024-06-09] MEDS: mannitol 12.5gm/50mL VIAL IV ONE (20:11)
[2024-06-09] MEDS: methylPREDNISolone sod succ 125mg/2ml vial IV SCH (21:54)
[2024-06-10] VITALS (11 sets, daily range): BP systolic 111–166; BP diastolic 51–90; PULSE 71–119; RESP 16–19; TEMP 97.4–98.8; O2SAT 92–96
[2024-06-10] MEDS: loperamide 2mg capsule PO ONE (01:04)
[2024-06-10 06:15] LABS: BASOPHILS # (AUTO) 0.1 X10'3 (0-0.2); BASOPHILS % (AUTO) 0.7 % (0-1); EOSINOPHILS # (AUTO) 0.1 X10'3 (0-0.9); EOSINOPHILS % (AUTO) 0.5 % (0-6); HEMATOCRIT 26.5 % (42.0-52.0); HEMOGLOBIN 8.9 g/dl (14.0-17.9); LYMPHOCYTES # (AUTO) 1.8 X10'3 (1.1-4.8); MEAN CORPUSCULAR HEMOGLOBIN 30.3 PG (27.0-31.0); MEAN CORPUSCULAR HGB CONC 33.5 g/dL (33.0-36.5); MEAN CORPUSCULAR VOLUME 90.4 FL (78-98); MEAN PLATELET VOLUME 7.1 FL (7.4-10.4); MONOCYTES # (AUTO) 0.1 X10'3 (0-0.9); NEUTROPHILS # (AUTO) 9.7 X10'3 (1.8-7.7); NEUTROPHILS % (AUTO) 82.8 % (42-75); PLATELET COUNT 233 X10'3 (140-440); RED BLOOD COUNT 2.93 X10'6 (4.70-6.10); RED CELL DISTRIBUTION WIDTH 16.8 % (11.5-14.5); WHITE BLOOD COUNT 11.7 X10'3 (4.5-11.0)
[2024-06-10 06:20] LABS: PROTHROMBIN TIME 37.7 SECONDS (9.0-12.0)
[2024-06-10 06:57] LABS: ALANINE AMINOTRANSFERASE 11 U/L (12-78); ALBUMIN 2.5 G/DL (3.4-5.0); ALBUMIN/GLOBULIN RATIO 0.6 (1.1-1.5); ALKALINE PHOSPHATASE 69 IU/L (46-116); ANION GAP 14 (8-16); ASPARTATE AMINO TRANSFERASE 13 U/L (10-37); BILIRUBIN,TOTAL 0.6 MG/DL (0.1-1.0); BLOOD UREA NITROGEN 46 MG/DL (7-18); BUN/CREATININE RATIO 11.9 (10.0-20.0); CALCIUM 8.4 MG/DL (8.5-10.1); CHLORIDE 108 MMOL/L (99-107); CREATININE 3.85 MG/DL (0.60-1.10); GLUCOSE 131 MG/DL (70-104); POTASSIUM 4.4 MMOL/L (3.5-5.1); SODIUM 144 MMOL/L (135-145); TOTAL CARBON DIOXIDE 21.8 MMOL/L (24-32); TOTAL PROTEIN 6.4 G/DL (6.4-8.2); eCRCL 22 ML/MIN; eGFR 16 ML/MIN
[2024-06-11] VITALS (13 sets, daily range): BP systolic 148–179; BP diastolic 67–98; PULSE 90–120; RESP 16–23; TEMP 98–98.9; O2SAT 92–98
[2024-06-11] MEDS ORDERED: albumin (human) 25% 100ml IV 100 ML IV PRN (06:20)
[2024-06-11 06:30] LABS: BASOPHILS # (AUTO) 0.1 X10'3 (0-0.2); BASOPHILS % (AUTO) 0.2 % (0-1); EOSINOPHILS % (AUTO) 0 % (0-6); HEMATOCRIT 26.4 % (42.0-52.0); HEMOGLOBIN 8.5 g/dl (14.0-17.9); LYMPHOCYTES # (AUTO) 1.9 X10'3 (1.1-4.8); LYMPHOCYTES % (AUTO) 8.5 % (21-51); MEAN CORPUSCULAR HEMOGLOBIN 29.4 PG (27.0-31.0); MEAN CORPUSCULAR HGB CONC 32.3 g/dL (33.0-36.5); MEAN CORPUSCULAR VOLUME 90.9 FL (78-98); MEAN PLATELET VOLUME 7.4 FL (7.4-10.4); MONOCYTES # (AUTO) 0.6 X10'3 (0-0.9); MONOCYTES % (AUTO) 2.7 % (2-12); NEUTROPHILS # (AUTO) 19.7 X10'3 (1.8-7.7); NEUTROPHILS % (AUTO) 88.6 % (42-75); PLATELET COUNT 246 X10'3 (140-440); RED CELL DISTRIBUTION WIDTH 16.8 % (11.5-14.5); WHITE BLOOD COUNT 22.3 X10'3 (4.5-11.0)
[2024-06-11 06:34] LABS: INR 3.4 INR; PROTHROMBIN TIME 32.8 SECONDS (9.0-12.0)
[2024-06-11 06:39] LABS: ALANINE AMINOTRANSFERASE 14 U/L (12-78); ALBUMIN 2.6 G/DL (3.4-5.0); ALBUMIN/GLOBULIN RATIO 0.7 (1.1-1.5); ALKALINE PHOSPHATASE 70 IU/L (46-116); ANION GAP 10 (8-16); ASPARTATE AMINO TRANSFERASE 7 U/L (10-37); BILIRUBIN,TOTAL 0.4 MG/DL (0.1-1.0); BLOOD UREA NITROGEN 66 MG/DL (7-18); BUN/CREATININE RATIO 14.1 (10.0-20.0); CALCIUM 8.8 MG/DL (8.5-10.1); CHLORIDE 109 MMOL/L (99-107); CREATININE 4.69 MG/DL (0.60-1.10); GLUCOSE 160 MG/DL (70-104); SODIUM 143 MMOL/L (135-145); TOTAL CARBON DIOXIDE 24.1 MMOL/L (24-32); TOTAL PROTEIN 6.2 G/DL (6.4-8.2); eCRCL 18 ML/MIN; eGFR 13 ML/MIN
[2024-06-11 08:56] LABS: MAGNESIUM 2.6 MG/DL (1.5-2.4); PHOSPHORUS 2.6 MG/DL (2.3-4.5)
[2024-06-11] MEDS: EPOETIN ALFA-EPBX 20,000 UNIT/ML 1 ML MDV IV ONE (14:26)
[2024-06-11] MEDS: heparin 1,000unit/ml 10ml vial 10 ML IV ONE (14:28)
[2024-06-11] MEDS: heparin 1,000 units/ml 10ml inj IV ONE (14:29)
[2024-06-11] MEDS: heparin 1,000 units/ml 10ml inj HE ONE ×2 (14:29→14:30)
[2024-06-11 16:00] LABS: INR 3.7 INR; PROTHROMBIN TIME 35.6 SECONDS (9.0-12.0)
[2024-06-11] MEDS: diphenhydrAMINE 50 mg/ml inj IV ONE (21:24)
[2024-06-11] MEDS: warfarin 3mg tablet PO SCH (22:06)
[2024-06-12] VITALS (8 sets, daily range): BP systolic 146–162; BP diastolic 89–96; PULSE 77–110; RESP 15–18; TEMP 96.4–98; O2SAT 92–100
[2024-06-12] MEDS: LORazepam 2 mg/ml vial IV ONE ×2 (00:06→03:48)
[2024-06-12 01:47] LABS: BILIRUBIN,URINE NEGATIVE (Neg); CLARITY,URINE CLOUDY (Clear); COLOR,URINE YELLOW (Yellow); GLUCOSE, URINE NEGATIVE (Neg); KETONES,URINE NEGATIVE (Neg); LEUKOCYTE ESTERASE ,URINE SMALL (Neg); NITRITES, URINE NEGATIVE (Neg); OCCULT BLOOD,URINE MODERATE (Neg); PH,URINE 5.5 (4.8-8.0); PROTEIN,URINE 100 mg/dl (Neg); UA COLLECTION TYPE FOLEY CATH; UROBILINOGEN,URINE 0.2 E.U/dL (0.2-1.0)
[2024-06-12 01:49] LABS: BACTERIA,URINE 4+ /HPF (Neg); SQUAMOUS EPITHELIAL CELL,UR FEW /LPF (FEW)
[2024-06-12 05:12] LABS: HBSAG SCREEN Negative (Negative); HEP B SURF AB Non Reactive (.)
[2024-06-12 06:32] LABS: BASOPHILS # (AUTO) 0.1 X10'3 (0-0.2); BASOPHILS % (AUTO) 0.2 % (0-1); EOSINOPHILS % (AUTO) 0 % (0-6); LYMPHOCYTES # (AUTO) 1.9 X10'3 (1.1-4.8); LYMPHOCYTES % (AUTO) 7.6 % (21-51); MEAN CORPUSCULAR HEMOGLOBIN 29.8 PG (27.0-31.0); MEAN CORPUSCULAR HGB CONC 32.6 g/dL (33.0-36.5); MEAN CORPUSCULAR VOLUME 91.4 FL (78-98); MEAN PLATELET VOLUME 7.5 FL (7.4-10.4); MONOCYTES # (AUTO) 0.7 X10'3 (0-0.9); MONOCYTES % (AUTO) 2.8 % (2-12); NEUTROPHILS # (AUTO) 22.5 X10'3 (1.8-7.7); NEUTROPHILS % (AUTO) 89.4 % (42-75); PLATELET COUNT 264 X10'3 (140-440); RED BLOOD COUNT 3.08 X10'6 (4.70-6.10); RED CELL DISTRIBUTION WIDTH 16.9 % (11.5-14.5)
[2024-06-12 06:47] LABS: ALANINE AMINOTRANSFERASE 23 U/L (12-78); ALBUMIN 2.8 G/DL (3.4-5.0); ALBUMIN/GLOBULIN RATIO 0.7 (1.1-1.5); ALKALINE PHOSPHATASE 82 IU/L (46-116); ANION GAP 11 (8-16); ASPARTATE AMINO TRANSFERASE 23 U/L (10-37); BILIRUBIN,TOTAL 0.6 MG/DL (0.1-1.0); BLOOD UREA NITROGEN 56 MG/DL (7-18); BUN/CREATININE RATIO 13.2 (10.0-20.0); CALCIUM 8.6 MG/DL (8.5-10.1); CHLORIDE 108 MMOL/L (99-107); CREATININE 4.24 MG/DL (0.60-1.10); GLUCOSE 149 MG/DL (70-104); MAGNESIUM 2.3 MG/DL (1.5-2.4); PHOSPHORUS 3.9 MG/DL (2.3-4.5); SODIUM 143 MMOL/L (135-145); TOTAL CARBON DIOXIDE 24.1 MMOL/L (24-32); TOTAL PROTEIN 6.8 G/DL (6.4-8.2); eCRCL 20 ML/MIN; eGFR 14 ML/MIN
[2024-06-12 06:56] LABS: WHITE BLOOD COUNT 25.2 X10'3 (4.5-11.0)
[2024-06-12 06:57] LABS: HEMATOCRIT 28.1 % (42.0-52.0); HEMOGLOBIN 9.2 g/dl (14.0-17.9)
[2024-06-12 07:12] LABS: POTASSIUM 4.3 MMOL/L (3.5-5.1)
[2024-06-12 07:20] LABS: INR 3.4 INR; PROTHROMBIN TIME 32.4 SECONDS (9.0-12.0)
[2024-06-12] MEDS: methylPREDNISolone sod succ/PF 40mg inj. IV SCH (08:00)
[2024-06-12 08:47] LABS: TOTAL CELLS COUNTED 100
[2024-06-12 08:48] LABS: ANISOCYTOSIS 1+; PLATELET ESTIMATE NORMAL; POLYCHROMASIA FEW
[2024-06-12 12:30] LABS: ABG BASE EXCESS 0.1 mmol/L (-2.0-3.0); ABG HCO3 23.4 mmol/L (21.0-28.0); ABG OXYGEN SATURATION 92.9 % (94.0-98.0); ABG PH (T) 7.469 (7.350-7.450); ABG PO2 (T) 62.4 mmHg (83.0-108.0); ALLEN'S TEST POSITIVE; FCOHb 0.1 % (0.5-1.5); FHHb 7.1 % (0.0-5.0); FMetHb 0.3 % (0.0-1.5); FO2Hb 92.5 % (94.0-98.0); MODE ROOM AIR; TOTAL HEMOGLOBIN 9.7 G/dl (13.5-17.5)
[2024-06-13] VITALS (15 sets, daily range): BP systolic 147–172; BP diastolic 87–105; PULSE 80–102; RESP 11–22; TEMP 97.5–98.2; O2SAT 96–100
[2024-06-13] MEDS ORDERED: albumin (human) 25% 100ml IV 100 ML IV PRN (06:10)
[2024-06-13 07:36] LABS: BASOPHILS % (AUTO) 0.1 % (0-1); EOSINOPHILS % (AUTO) 0 % (0-6); HEMATOCRIT 29.6 % (42.0-52.0); HEMOGLOBIN 9.5 g/dl (14.0-17.9); LYMPHOCYTES # (AUTO) 1.7 X10'3 (1.1-4.8); LYMPHOCYTES % (AUTO) 7.7 % (21-51); MEAN CORPUSCULAR HEMOGLOBIN 29.5 PG (27.0-31.0); MEAN CORPUSCULAR HGB CONC 32.1 g/dL (33.0-36.5); MEAN CORPUSCULAR VOLUME 91.8 FL (78-98); MEAN PLATELET VOLUME 7.6 FL (7.4-10.4); MONOCYTES # (AUTO) 1.8 X10'3 (0-0.9); MONOCYTES % (AUTO) 8.3 % (2-12); NEUTROPHILS # (AUTO) 18.6 X10'3 (1.8-7.7); NEUTROPHILS % (AUTO) 83.9 % (42-75); PLATELET COUNT 251 X10'3 (140-440); RED BLOOD COUNT 3.22 X10'6 (4.70-6.10); RED CELL DISTRIBUTION WIDTH 16.7 % (11.5-14.5); WHITE BLOOD COUNT 22.2 X10'3 (4.5-11.0)
[2024-06-13 07:56] LABS: PROTHROMBIN TIME 37.8 SECONDS (9.0-12.0)
[2024-06-13 08:16] LABS: ALANINE AMINOTRANSFERASE 34 U/L (12-78); ALBUMIN 2.8 G/DL (3.4-5.0); ALBUMIN/GLOBULIN RATIO 0.8 (1.1-1.5); ALKALINE PHOSPHATASE 82 IU/L (46-116); ANION GAP 15 (8-16); ASPARTATE AMINO TRANSFERASE 23 U/L (10-37); BILIRUBIN,TOTAL 0.6 MG/DL (0.1-1.0); BLOOD UREA NITROGEN 77 MG/DL (7-18); BUN/CREATININE RATIO 16.5 (10.0-20.0); CALCIUM 8.7 MG/DL (8.5-10.1); CHLORIDE 109 MMOL/L (99-107); CREATININE 4.67 MG/DL (0.60-1.10); GLUCOSE 117 MG/DL (70-104); MAGNESIUM 2.4 MG/DL (1.5-2.4); PHOSPHORUS 5.4 MG/DL (2.3-4.5); SODIUM 148 MMOL/L (135-145); TOTAL CARBON DIOXIDE 23.8 MMOL/L (24-32); TOTAL PROTEIN 6.5 G/DL (6.4-8.2); eCRCL 18 ML/MIN; eGFR 13 ML/MIN
[2024-06-13 08:34] LABS: ANISOCYTOSIS 1+; NUCLEATED RED BLOOD CELLS 1 /100WBC (0-0); PLATELET ESTIMATE NORMAL; TOTAL CELLS COUNTED 100
[2024-06-13 08:35] LABS: ELLIPTOCYTES FEW; POLYCHROMASIA FEW
[2024-06-13] MEDS: diltiazem CD 120mg capsule (once-daily) PO SCH (08:57)
[2024-06-13] MEDS ORDERED: doxycycline inj 100 MG in normal saline 100ml IV soln 100 ML IV SCH (10:20)
[2024-06-13] MEDS: EPOETIN ALFA-EPBX 20,000 UNIT/ML 1 ML MDV IV ONE (13:24)
[2024-06-13] MEDS: heparin 1,000 units/ml 10ml inj HE ONE ×2 (13:25→13:27)
[2024-06-14] VITALS (8 sets, daily range): BP systolic 146–168; BP diastolic 75–105; PULSE 84–102; RESP 13–18; TEMP 97.1–98.9; O2SAT 96–99
[2024-06-14] MEDS: ertapenem sod inj 1 GM in normal saline 100ml IV soln 100 ML IV SCH (00:27)
[2024-06-14] MEDS: cloNIDine 0.1 mg tablet PO PRN (02:12)
[2024-06-14 07:14] LABS: INR 3.4 INR
[2024-06-14 07:44] LABS: BASOPHILS % (AUTO) 0.1 % (0-1); EOSINOPHILS # (AUTO) 0.1 X10'3 (0-0.9); EOSINOPHILS % (AUTO) 0.5 % (0-6); HEMATOCRIT 31.7 % (42.0-52.0); HEMOGLOBIN 10.5 g/dl (14.0-17.9); LYMPHOCYTES # (AUTO) 1.6 X10'3 (1.1-4.8); LYMPHOCYTES % (AUTO) 9.1 % (21-51); MEAN CORPUSCULAR HEMOGLOBIN 30.2 PG (27.0-31.0); MEAN CORPUSCULAR VOLUME 91.7 FL (78-98); MEAN PLATELET VOLUME 7.6 FL (7.4-10.4); MONOCYTES # (AUTO) 1.8 X10'3 (0-0.9); NEUTROPHILS # (AUTO) 14.2 X10'3 (1.8-7.7); NEUTROPHILS % (AUTO) 80.3 % (42-75); PLATELET COUNT 251 X10'3 (140-440); RED BLOOD COUNT 3.46 X10'6 (4.70-6.10); RED CELL DISTRIBUTION WIDTH 16.7 % (11.5-14.5); WHITE BLOOD COUNT 17.6 X10'3 (4.5-11.0)
[2024-06-14 07:48] LABS: ALANINE AMINOTRANSFERASE 38 U/L (12-78); ALBUMIN 2.7 G/DL (3.4-5.0); ALBUMIN/GLOBULIN RATIO 0.7 (1.1-1.5); ALKALINE PHOSPHATASE 85 IU/L (46-116); ANION GAP 13 (8-16); ASPARTATE AMINO TRANSFERASE 22 U/L (10-37); BILIRUBIN,TOTAL 0.5 MG/DL (0.1-1.0); BLOOD UREA NITROGEN 59 MG/DL (7-18); BUN/CREATININE RATIO 15.2 (10.0-20.0); CALCIUM 8.3 MG/DL (8.5-10.1); CHLORIDE 109 MMOL/L (99-107); CREATININE 3.88 MG/DL (0.60-1.10); GLUCOSE 106 MG/DL (70-104); MAGNESIUM 2.1 MG/DL (1.5-2.4); PHOSPHORUS 4.9 MG/DL (2.3-4.5); POTASSIUM 3.9 MMOL/L (3.5-5.1); SODIUM 145 MMOL/L (135-145); TOTAL CARBON DIOXIDE 22.8 MMOL/L (24-32); TOTAL PROTEIN 6.5 G/DL (6.4-8.2); eCRCL 22 ML/MIN; eGFR 16 ML/MIN
[2024-06-14] MEDS: phytonadione 10 MG/1 ML amp PO ONE (10:57)
[2024-06-14 16:32] LABS: INR 2.6 INR; PROTHROMBIN TIME 25.6 SECONDS (9.0-12.0)
[2024-06-14] MEDS ORDERED: heparin 1,000unit/ml 10ml vial 10 ML ONE (16:32)
[2024-06-14] MEDS ORDERED: LIDOcaine 1% W/epiNEPHrine 1:100,000 20ml vial ONE (16:32)
[2024-06-14 22:22] LABS: MAGNESIUM 2.1 MG/DL (1.5-2.4); POTASSIUM 4.1 MMOL/L (3.5-5.1)
[2024-06-15] VITALS (15 sets, daily range): BP systolic 130–184; BP diastolic 72–101; PULSE 67–100; RESP 11–20; TEMP 97.4–98.1; O2SAT 95–99
[2024-06-15] MEDS: ertapenem sod inj 1 GM in normal saline 100ml IV soln 100 ML IV SCH (00:33)
[2024-06-15 06:28] LABS: INR 1.7 INR; PROTHROMBIN TIME 16.7 SECONDS (9.0-12.0)
[2024-06-15 06:40] LABS: MAGNESIUM 2.1 MG/DL (1.5-2.4); PHOSPHORUS 6.5 MG/DL (2.3-4.5)
[2024-06-15] MEDS ORDERED: albumin (human) 25% 100ml IV 100 ML IV PRN (06:45)
[2024-06-15] MEDS: EPOETIN ALFA-EPBX 20,000 UNIT/ML 1 ML MDV IV ONE (08:38)
[2024-06-15] MEDS: heparin 1,000unit/ml 10ml vial 10 ML IV ONE (09:00)
[2024-06-15] MEDS: heparin 1,000 units/ml 10ml inj HE ONE ×2 (09:00→09:47)
[2024-06-15] MEDS: heparin 1,000 units/ml 10ml inj IV ONE (09:47)
[2024-06-15] MEDS: cloNIDine 0.2 MG/24 HR patch (7 day patch) TD SCH (11:35)
[2024-06-15] MEDS: warfarin 5mg tablet PO ONE (20:57)
[2024-06-16] VITALS (10 sets, daily range): BP systolic 116–154; BP diastolic 63–83; PULSE 85–99; RESP 14–18; TEMP 97.4–98.7; O2SAT 95–99
[2024-06-16 07:30] LABS: INR 1.3 INR
[2024-06-16 07:54] LABS: MAGNESIUM 2.2 MG/DL (1.5-2.4); PHOSPHORUS 5.5 MG/DL (2.3-4.5)
[2024-06-16 11:56] LABS: BASOPHILS % (AUTO) 0.2 % (0-1); EOSINOPHILS # (AUTO) 0.2 X10'3 (0-0.9); EOSINOPHILS % (AUTO) 1.5 % (0-6); HEMATOCRIT 31.2 % (42.0-52.0); HEMOGLOBIN 10.4 g/dl (14.0-17.9); LYMPHOCYTES % (AUTO) 7.9 % (21-51); MEAN CORPUSCULAR HEMOGLOBIN 30.5 PG (27.0-31.0); MEAN CORPUSCULAR HGB CONC 33.2 g/dL (33.0-36.5); MEAN CORPUSCULAR VOLUME 91.9 FL (78-98); MEAN PLATELET VOLUME 8.3 FL (7.4-10.4); MONOCYTES # (AUTO) 1.3 X10'3 (0-0.9); MONOCYTES % (AUTO) 9.6 % (2-12); NEUTROPHILS # (AUTO) 10.6 X10'3 (1.8-7.7); NEUTROPHILS % (AUTO) 80.8 % (42-75); PLATELET COUNT 218 X10'3 (140-440); RED BLOOD COUNT 3.39 X10'6 (4.70-6.10); RED CELL DISTRIBUTION WIDTH 17.1 % (11.5-14.5); WHITE BLOOD COUNT 13.1 X10'3 (4.5-11.0)
[2024-06-16 12:14] LABS: ALANINE AMINOTRANSFERASE 23 U/L (12-78); ALBUMIN 2.5 G/DL (3.4-5.0); ALBUMIN/GLOBULIN RATIO 0.7 (1.1-1.5); ALKALINE PHOSPHATASE 87 IU/L (46-116); ANION GAP 15 (8-16); ASPARTATE AMINO TRANSFERASE 15 U/L (10-37); BILIRUBIN,TOTAL 0.5 MG/DL (0.1-1.0); BLOOD UREA NITROGEN 59 MG/DL (7-18); BUN/CREATININE RATIO 13.4 (10.0-20.0); CALCIUM 7.9 MG/DL (8.5-10.1); CHLORIDE 107 MMOL/L (99-107); GLUCOSE 139 MG/DL (70-104); SODIUM 144 MMOL/L (135-145); TOTAL CARBON DIOXIDE 22.2 MMOL/L (24-32); TOTAL PROTEIN 6.2 G/DL (6.4-8.2); eCRCL 19 ML/MIN; eGFR 14 ML/MIN
[2024-06-16 16:54] LABS: INR 1.2 INR; PROTHROMBIN TIME 12.7 SECONDS (9.0-12.0)
[2024-06-16] MEDS: warfarin 3mg tablet PO ONE (22:31)
[2024-06-17 02:00] VITALS: BP 130/76; PULSE 99; RESP 15; TEMP 98; O2SAT 94
[2024-06-17] MEDS: LORazepam 2 mg/ml vial IM ONE (05:50)
[2024-06-17 06:00] VITALS: BP 143/86; PULSE 110; RESP 18; TEMP 97.9; O2SAT 98
[2024-06-17 07:00] VITALS: RESP 18; O2SAT 98
[2024-06-17 07:25] LABS: BASOPHILS % (AUTO) 0.3 % (0-1); EOSINOPHILS # (AUTO) 0.3 X10'3 (0-0.9); EOSINOPHILS % (AUTO) 1.8 % (0-6); HEMATOCRIT 34.4 % (42.0-52.0); HEMOGLOBIN 11.2 g/dl (14.0-17.9); LYMPHOCYTES # (AUTO) 1.5 X10'3 (1.1-4.8); LYMPHOCYTES % (AUTO) 10.4 % (21-51); MEAN CORPUSCULAR HEMOGLOBIN 29.8 PG (27.0-31.0); MEAN CORPUSCULAR HGB CONC 32.4 g/dL (33.0-36.5); MEAN CORPUSCULAR VOLUME 91.8 FL (78-98); MEAN PLATELET VOLUME 8.3 FL (7.4-10.4); MONOCYTES # (AUTO) 1.6 X10'3 (0-0.9); MONOCYTES % (AUTO) 11.1 % (2-12); NEUTROPHILS # (AUTO) 10.8 X10'3 (1.8-7.7); NEUTROPHILS % (AUTO) 76.4 % (42-75); PLATELET COUNT 274 X10'3 (140-440); RED BLOOD COUNT 3.75 X10'6 (4.70-6.10); RED CELL DISTRIBUTION WIDTH 17.4 % (11.5-14.5); WHITE BLOOD COUNT 14.2 X10'3 (4.5-11.0)
[2024-06-17] MEDS: haloperidol lactate 5mg/ml inj IM ONE ×2 (07:30→20:20)
[2024-06-17 07:33] LABS: INR 1.2 INR; PROTHROMBIN TIME 12.8 SECONDS (9.0-12.0)
[2024-06-17 07:38] LABS: ALANINE AMINOTRANSFERASE 24 U/L (12-78); ALBUMIN 3.1 G/DL (3.4-5.0); ALBUMIN/GLOBULIN RATIO 0.8 (1.1-1.5); ALKALINE PHOSPHATASE 102 IU/L (46-116); ANION GAP 16 (8-16); ASPARTATE AMINO TRANSFERASE 17 U/L (10-37); BILIRUBIN,TOTAL 0.7 MG/DL (0.1-1.0); BLOOD UREA NITROGEN 67 MG/DL (7-18); BUN/CREATININE RATIO 13.2 (10.0-20.0); CALCIUM 8.1 MG/DL (8.5-10.1); CHLORIDE 105 MMOL/L (99-107); CREATININE 5.06 MG/DL (0.60-1.10); GLUCOSE 108 MG/DL (70-104); MAGNESIUM 2.1 MG/DL (1.5-2.4); PHOSPHORUS 5.9 MG/DL (2.3-4.5); POTASSIUM 3.8 MMOL/L (3.5-5.1); SODIUM 145 MMOL/L (135-145); TOTAL CARBON DIOXIDE 23.8 MMOL/L (24-32); eCRCL 17 ML/MIN; eGFR 12 ML/MIN
[2024-06-17 16:13] LABS: BILIRUBIN,URINE NEGATIVE (Neg); CLARITY,URINE CLEAR (Clear); COLOR,URINE YELLOW (Yellow); GLUCOSE, URINE NEGATIVE (Neg); KETONES,URINE NEGATIVE (Neg); LEUKOCYTE ESTERASE ,URINE NEGATIVE (Neg); NITRITES, URINE NEGATIVE (Neg); OCCULT BLOOD,URINE TRACE-INTACT (Neg); PH,URINE 5.5 (4.8-8.0); PROTEIN,URINE 100 mg/dl (Neg); UROBILINOGEN,URINE 0.2 E.U/dL (0.2-1.0)
[2024-06-17 16:18] LABS: UA COLLECTION TYPE FOLEY CATH
[2024-06-17 16:20] LABS: RBC,URINE 0-2 /HPF (0-2)
[2024-06-17 16:21] LABS: BACTERIA,URINE FEW /HPF (Neg); SQUAMOUS EPITHELIAL CELL,UR FEW /LPF (FEW)
[2024-06-17 18:00] VITALS: BP 134/77; PULSE 98; RESP 16; TEMP 97.8; O2SAT 98
[2024-06-17 19:00] VITALS: RESP 16; O2SAT 95
[2024-06-17] MEDS: warfarin 3mg tablet PO ONE (21:00)
[2024-06-17 22:00] VITALS: BP 136/80; PULSE 106; RESP 15; TEMP 97.6; O2SAT 97
[2024-06-18] VITALS (15 sets, daily range): BP systolic 86–161; BP diastolic 55–108; PULSE 70–155; RESP 15–18; TEMP 97.3–98.6; O2SAT 94–98
[2024-06-18] MEDS ORDERED: albumin (human) 25% 100ml IV 100 ML IV PRN (05:20)
[2024-06-18 07:37] LABS: ALANINE AMINOTRANSFERASE 20 U/L (12-78); ALBUMIN 2.9 G/DL (3.4-5.0); ALBUMIN/GLOBULIN RATIO 0.8 (1.1-1.5); ALKALINE PHOSPHATASE 95 IU/L (46-116); ANION GAP 18 (8-16); ASPARTATE AMINO TRANSFERASE 13 U/L (10-37); BILIRUBIN,TOTAL 0.7 MG/DL (0.1-1.0); BLOOD UREA NITROGEN 79 MG/DL (7-18); BUN/CREATININE RATIO 14.1 (10.0-20.0); CALCIUM 7.6 MG/DL (8.5-10.1); CHLORIDE 107 MMOL/L (99-107); CREATININE 5.61 MG/DL (0.60-1.10); GLUCOSE 108 MG/DL (70-104); INR 1.4 INR; PHOSPHORUS 7.5 MG/DL (2.3-4.5); POTASSIUM 4.2 MMOL/L (3.5-5.1); PROTHROMBIN TIME 13.9 SECONDS (9.0-12.0); SODIUM 146 MMOL/L (135-145); TOTAL CARBON DIOXIDE 20.6 MMOL/L (24-32); TOTAL PROTEIN 6.6 G/DL (6.4-8.2); eCRCL 15 ML/MIN; eGFR 10 ML/MIN
[2024-06-18 07:47] LABS: BASOPHILS # (AUTO) 0.1 X10'3 (0-0.2); BASOPHILS % (AUTO) 0.4 % (0-1); EOSINOPHILS # (AUTO) 0.1 X10'3 (0-0.9); EOSINOPHILS % (AUTO) 0.6 % (0-6); HEMOGLOBIN 11.2 g/dl (14.0-17.9); LYMPHOCYTES # (AUTO) 1.3 X10'3 (1.1-4.8); LYMPHOCYTES % (AUTO) 9.5 % (21-51); MEAN CORPUSCULAR HEMOGLOBIN 29.9 PG (27.0-31.0); MEAN CORPUSCULAR HGB CONC 32.1 g/dL (33.0-36.5); MEAN CORPUSCULAR VOLUME 93.2 FL (78-98); MEAN PLATELET VOLUME 8.3 FL (7.4-10.4); MONOCYTES # (AUTO) 1.7 X10'3 (0-0.9); MONOCYTES % (AUTO) 11.9 % (2-12); NEUTROPHILS # (AUTO) 10.9 X10'3 (1.8-7.7); NEUTROPHILS % (AUTO) 77.6 % (42-75); PLATELET COUNT 263 X10'3 (140-440); RED BLOOD COUNT 3.76 X10'6 (4.70-6.10); RED CELL DISTRIBUTION WIDTH 17.1 % (11.5-14.5)
[2024-06-18] MEDS: heparin 1,000unit/ml 10ml vial 10 ML IV ONE (15:00)
[2024-06-18] MEDS: heparin 1,000 units/ml 10ml inj IV ONE (15:00)
[2024-06-18] MEDS: heparin 1,000 units/ml 10ml inj HE ONE ×2 (17:29→17:30)
[2024-06-18] MEDS: warfarin 3mg tablet PO ONE (21:00)
[2024-06-19 02:00] VITALS: BP 109/65; PULSE 130; RESP 18; TEMP 98; O2SAT 96
[2024-06-19] MEDS ORDERED: ertapenem sod inj 1 GM in normal saline 100ml IV soln 100 ML IV SCH (03:50)
[2024-06-19 07:00] VITALS: RESP 12; O2SAT 97
[2024-06-19 07:33] LABS: BASOPHILS # (AUTO) 0.1 X10'3 (0-0.2); BASOPHILS % (AUTO) 0.9 % (0-1); EOSINOPHILS # (AUTO) 0.1 X10'3 (0-0.9); EOSINOPHILS % (AUTO) 0.9 % (0-6); HEMATOCRIT 35.3 % (42.0-52.0); HEMOGLOBIN 11.5 g/dl (14.0-17.9); LYMPHOCYTES # (AUTO) 1.3 X10'3 (1.1-4.8); LYMPHOCYTES % (AUTO) 10.5 % (21-51); MEAN CORPUSCULAR HEMOGLOBIN 30.1 PG (27.0-31.0); MEAN CORPUSCULAR HGB CONC 32.7 g/dL (33.0-36.5); MEAN PLATELET VOLUME 8.4 FL (7.4-10.4); MONOCYTES # (AUTO) 1.4 X10'3 (0-0.9); MONOCYTES % (AUTO) 11.8 % (2-12); NEUTROPHILS # (AUTO) 9.1 X10'3 (1.8-7.7); NEUTROPHILS % (AUTO) 75.9 % (42-75); PLATELET COUNT 300 X10'3 (140-440); RED BLOOD COUNT 3.84 X10'6 (4.70-6.10); RED CELL DISTRIBUTION WIDTH 16.7 % (11.5-14.5)
[2024-06-19 07:34] LABS: INR 1.7 INR; PROTHROMBIN TIME 17.4 SECONDS (9.0-12.0)
[2024-06-19 08:11] LABS: ALANINE AMINOTRANSFERASE 18 U/L (12-78); ALBUMIN/GLOBULIN RATIO 0.8 (1.1-1.5); ALKALINE PHOSPHATASE 104 IU/L (46-116); ANION GAP 17 (8-16); ASPARTATE AMINO TRANSFERASE 16 U/L (10-37); BILIRUBIN,TOTAL 0.7 MG/DL (0.1-1.0); BLOOD UREA NITROGEN 63 MG/DL (7-18); BUN/CREATININE RATIO 11.8 (10.0-20.0); CALCIUM 8.8 MG/DL (8.5-10.1); CHLORIDE 106 MMOL/L (99-107); CREATININE 5.33 MG/DL (0.60-1.10); GLUCOSE 109 MG/DL (70-104); POTASSIUM 4.1 MMOL/L (3.5-5.1); SODIUM 145 MMOL/L (135-145); TOTAL CARBON DIOXIDE 22.4 MMOL/L (24-32); eCRCL 16 ML/MIN; eGFR 11 ML/MIN
[2024-06-19] MEDS ORDERED: warfarin 5mg tablet PO ONE (21:00)
== END 2024-06-19 16:22 | DRG 313 ==
LOC: PAS IN 05-31 09:34 → ORTHO 4S 05-31 20:32 → PCU 3S 06-11 19:55
PROVIDERS: ADMIT Podiatrist Foot & Ankle Surgery; ATTEND Podiatrist Foot & Ankle Surgery
PROC: 0SGJ04Z Fusion of Left Tarsal Joint with Internal Fixation Device, Open Approach (ICD-10-PCS; 2024-05-31)
PROC: 0QSH06Z Reposition Left Tibia with Intramedullary Internal Fixation Device, Open Approach (ICD-10-PCS; 2024-05-31)
PROC: 0SGJ04Z Fusion of Left Tarsal Joint with Internal Fixation Device, Open Approach (ICD-10-PCS; principal; 2024-05-31 13:30)
PROC: 30233N1 Transfusion of Nonautologous Red Blood Cells into Peripheral Vein, Percutaneous Approach (ICD-10-PCS; 2024-06-01)
PROC: 5A0935A Assistance with Respiratory Ventilation, Less than 24 Consecutive Hours, High Flow/Velocity Cannula (ICD-10-PCS; 2024-06-07)
PROC: 05HY33Z Insertion of Infusion Device into Upper Vein, Percutaneous Approach (ICD-10-PCS; 2024-06-08)
PROC: B543ZZA Ultrasonography of Right Jugular Veins, Guidance (ICD-10-PCS; 2024-06-08)
PROC: 5A1D70Z Performance of Urinary Filtration, Intermittent, Less than 6 Hours Per Day (ICD-10-PCS; 2024-06-08)
PROC: 5A0935A Assistance with Respiratory Ventilation, Less than 24 Consecutive Hours, High Flow/Velocity Cannula (ICD-10-PCS; 2024-06-08)
PROC: 5A1D70Z Performance of Urinary Filtration, Intermittent, Less than 6 Hours Per Day (ICD-10-PCS; 2024-06-09)
PROC: 5A0935A Assistance with Respiratory Ventilation, Less than 24 Consecutive Hours, High Flow/Velocity Cannula (ICD-10-PCS; 2024-06-09)
PROC: 5A1D70Z Performance of Urinary Filtration, Intermittent, Less than 6 Hours Per Day (ICD-10-PCS; 2024-06-11)
PROC: 5A09357 Assistance with Respiratory Ventilation, Less than 24 Consecutive Hours, Continuous Positive Airway Pressure (ICD-10-PCS; 2024-06-11)
PROC: 5A1D70Z Performance of Urinary Filtration, Intermittent, Less than 6 Hours Per Day (ICD-10-PCS; 2024-06-13)
PROC: 0JH63XZ Insertion of Tunneled Vascular Access Device into Chest Subcutaneous Tissue and Fascia, Percutaneous Approach (ICD-10-PCS; 2024-06-14)
PROC: 02HV33Z Insertion of Infusion Device into Superior Vena Cava, Percutaneous Approach (ICD-10-PCS; 2024-06-14)
PROC: B5181ZA Fluoroscopy of Superior Vena Cava using Low Osmolar Contrast, Guidance (ICD-10-PCS; 2024-06-14)
PROC: B548ZZA Ultrasonography of Superior Vena Cava, Guidance (ICD-10-PCS; 2024-06-14)
PROC: 30233K1 Transfusion of Nonautologous Frozen Plasma into Peripheral Vein, Percutaneous Approach (ICD-10-PCS; 2024-06-14)
PROC: 5A1D70Z Performance of Urinary Filtration, Intermittent, Less than 6 Hours Per Day (ICD-10-PCS; 2024-06-15)
PROC: 5A1D70Z Performance of Urinary Filtration, Intermittent, Less than 6 Hours Per Day (ICD-10-PCS; 2024-06-18)
DX: S93.05XA Dislocation of left ankle joint, initial encounter (principal); J96.00 Acute respiratory failure, unspecified whether with hypoxia or hypercapnia; G93.49 Other encephalopathy; I13.2 Hypertensive heart and chronic kidney disease with heart failure and with stage 5 chronic kidney disease, or end stage renal disease; I31.39 Other pericardial effusion (noninflammatory); E87.20 Acidosis, unspecified; M86.672 Other chronic osteomyelitis, left ankle and foot; I42.9 Cardiomyopathy, unspecified; N17.9 Acute kidney failure, unspecified; I48.20 Chronic atrial fibrillation, unspecified; I50.32 Chronic diastolic (congestive) heart failure; E11.22 Type 2 diabetes mellitus with diabetic chronic kidney disease; E11.42 Type 2 diabetes mellitus with diabetic polyneuropathy; E11.69 Type 2 diabetes mellitus with other specified complication; E66.01 Morbid (severe) obesity due to excess calories; G47.33 Obstructive sleep apnea (adult) (pediatric); K21.9 Gastro-esophageal reflux disease without esophagitis; M25.472 Effusion, left ankle; G89.29 Other chronic pain; D64.9 Anemia, unspecified; N18.6 End stage renal disease; I48.91 Unspecified atrial fibrillation; I25.10 Atherosclerotic heart disease of native coronary artery without angina pectoris; D72.829 Elevated white blood cell count, unspecified; X58.XXXA Exposure to other specified factors, initial encounter; Z88.1 Allergy status to other antibiotic agents; Z88.0 Allergy status to penicillin; Z95.5 Presence of coronary angioplasty implant and graft; Z98.84 Bariatric surgery status; Y93.89 Activity, other specified; Y92.89 Other specified places as the place of occurrence of the external cause; Y99.8 Other external cause status
CPT/HCPCS: 36415; 36430; 36558; 36600; 70450; 71045; 71250; 73600; 76000; 76937; 77001; 78582; 80048; 80053; 81001; 82803; 82948; 83540; 83550; 83605; 83735; 84100; 84132; 84145; 85007; 85018; 85025; 85027; 85610; 85651; 85730; 86706; 86885; 86900; 86901; 86920; 87070; 87075; 87076; 87077; 87081; 87186; 87340; 93306; 94760; 97110; 97161; 97530; 97535; A4314; A4358; A4615; A4618; A4620; A5200; A6196; A6213; A6223; A6250; A6253; A6258; A6446; A6449; A6590; A7000; A9270; A9539; A9540; C1713; C1750; C1752; C1758; C1769; C1894; C9290; E1594; G0257; G0378; J0171; J0665; J1100; J1200; J1335; J1630; J1644; J2003; J2060; J2150; J2250; J2405; J2704; J2919; J3010; J3370; J3372; J3430; J3490; J7030; J7040; J7070; J7120; P9016; P9045; P9059; Q0163; Q4081

== ENCOUNTER 2025-05-17 13:54 | Emergency (ER) | payer MEDICARE, MEDICAID ==
[~2025-05-17] VITALS: Ht 182.9 cm; Wt 243.0 kg
[~2025-05-17 13:54] MED LIST changes: +CHOL500044 PO; +DOXA4TAB94 PO; +LISI40TA20 PO; +WARF6TAB49 PO
[2025-05-17 14:08] VITALS: TEMP 97.8
--- NOTE | 2025-05-17 14:18 | ELECTROCARDIOGRAPH REPORT ---
[facility] Test Date: 2025-05-17 Test Time: 14:16:34 Pat Name: MARBELLA SALINAS Department: EMERGENCY ROOM Room: Gender: M Investor Relations Specialist: PM : 1965 Requested By: JENNIFER SCHMITT Order Number: [id number] Reading MD: Dr. ELLE Ardon Measurements Intervals [place] Rate: 71 P: 0 LA: 0 QRS: 26 QRSD: 104 T: 44 QT: 498 QTc: 542 Interpretive Statements Atrial fibrillation Low voltage, extremity and precordial leads Probable anteroseptal infarct, old Prolonged QT interval Electronically Signed On 05-18-2025 19:39:[address] ELLE Ardon Please click the below link to view image of tracing.
--- NOTE | 2025-05-17 14:29 | RADIOLOGY REPORT ---
EXAM: DI CHEST,SINGLE VIEW HISTORY: CP COMPARISON: DI CHEST,SINGLE VIEW on DOS: 06/08/24, DI CHEST,SINGLE VIEW on DOS: 06/06/24, DI CHEST,SINGLE VIEW on DOS: 06/01/24, DI CHEST,SINGLE VIEW on DOS: 01/19/24, CHEST,SINGLE VIEW on DOS: 11/16/22 TECHNIQUE: Portable semi-erect AP views of the chest were performed. FINDINGS: There has been interval placement of a right chest tunneled dialysis catheter with its tip in the lower SVC. There is mild central interstitial prominence, improved. No pneumothorax or consolidative infiltrates. The heart is enlarged. IMPRESSION: Cardiomegaly with mild the central interstitial prominence which may be due to Reactive airways disease are mild CHF. This appearance has improved compared with chest x-ray dated 06/08/2024.
[2025-05-17 14:39] LABS: MEAN PLATELET VOLUME 8.3 FL (7.4-10.4); RED CELL DISTRIBUTION WIDTH 17.9 % (11.5-14.5)
--- NOTE | 2025-05-17 14:50 | Physician Documentation ---
History of Present Illness ~ Chief Complaint: Weakness Stated Complaint: GENERAL WEAKNESS Time Seen by MD: 14:50 OK to notify your PCP?: Yes Primary Medical Doctor: hospitalist PENG The patient is a 59-year-old man with a history of morbid obesity, CKD, Charcot left foot and osteomyelitis of the foot operated on about a year ago and this was followed by renal failure leading to dialysis Mondays, Wednesdays and Fridays. Patient was at dialysis today and had to cut it short due to weakness. He uses a walker to walk. Patient reports that he has been getting weeks since about five or six months ago. Medication Reconciliation Allergies: Coded Allergies: Penicillins (Verified Allergy, Severe, BAD BLISTERS, ITCHING, TURNS RED, 05/29/24) cefazolin (Verified Allergy, Intermediate, rash, BAD BLISTERS, ITCHING, TURNS RED, 05/29/24) penicillin doxycycline (Verified Allergy, Intermediate, body rash, itchiness, 06/13/24) per pt Scheduled Carvedilol (Carvedilol), 25 MG PO BID, (Reported) Cholecalciferol (Vitamin D3) (Vitamin D3), 1 TAB PO DAILY, (Reported) Doxazosin Mesylate (Doxazosin Mesylate), 4 MG PO QPM, (Reported) Ferrous Sulfate (Ferosul), 325 MG PO TID, (Reported) Lisinopril* (Lisinopril*), 40 MG PO BID, (Reported) Nifedipine ER* (Nifedipine Er*), 60 MG PO QPM, (Reported) Omeprazole (Prilosec), 40 MG PO DAILY, (Reported) Warfarin Sodium (Warfarin Sodium), 6 MG PO QPM, (Reported) Past Medical History Past Medical History: Atrial Fibrillation, Hypertension, *RENAL/*, Cellulitis Past Surgical History: noncontributory Patient History: FH: dementia FATHER Alcohol Use: Rarely Drug Use: none Lives In: Home Review of Systems ROS Constitutional: Generalized weakness. HEENT: Denies hearing loss, sinus pressure or visual changes. Respiratory: Denies cough, shortness of breath or wheezing. Cardiovascular: Denies chest pain, pain while walking (claudication), edema or palpitations. Gastrointestinal: Denies abdominal pain, blood in stool, constipation, diarrhea, heartburn, loss of appetite, nausea or vomiting. Genitourinary: Denies painful urination (dysuria), excessive amount of urine (polyuria) or urinary frequency. Metabolic/Endocrine: Denies cold intolerance, heat intolerance, excessive thirst (polydipsia) or excessive hunger (polyphagia). Neurological: Denies dizziness, extremity numbness, extremity weakness, headaches, seizures or tremors. Psychiatric: Denies anxiety or depression. Integumentary: Denies breast discharge, breast lump, hives, mole change(s), rash or skin lesion. Musculoskeletal: Denies back pain, joint pain, joint swelling or neck pain. Hematologic: Denies easily bleeding, easily bruises, lymphedema or issues with blood clots. Immunologic: Denies food allergies or seasonal allergies. Physical Exam Vital Signs: Temperature: 97.8, Source: Oral, Heart Rate: 62, Respiratory Rate: 21, BP: 97/70, Pulse Oximetry: 97, Weight: 243.000 Oxygen Flow Rate: 0 Physical Exam Physical Exam Vitals and nursing note reviewed. Constitutional: General: Patient is awake, alert, oriented x 4 in no acute distress and well appearing. Speech is clear and lucid. Appearance: Morbidly obese. Patient is not ill-appearing, toxic-appearing or diaphoretic. HENT: Head: Normocephalic and atraumatic. Mouth/Throat: Mouth: Mucous membranes are moist. Pharynx: Oropharynx is clear. Eyes: General: No scleral icterus. Extraocular Movements: Extraocular movements intact. Pupils: Pupils are equal, round, and reactive to light. Neck: Supple, no Kernig or Brudzinski sign. Cardiovascular: Rate and Rhythm: Normal rate and regular rhythm. Heart sounds: No murmur heard. Pulmonary: Effort: No respiratory distress. Breath sounds: No wheezing, rhonchi or rales. Abdominal: General: There is no distension. Palpations: There is no fluid wave, hepatomegaly or mass. Tenderness: There is no abdominal tenderness. There is no guarding. Musculoskeletal: General: No swelling or deformity. Skin: Coloration: Skin is not jaundiced. Findings: No erythema or rash. Neurological: Mental Status: Patient is alert. Progress Results/Orders Results/Orders Orders - JENNIFER SCHMITT MD Chest,Single View (05/17/25 14:08) Monitor (05/17/25 14:08) Saline Lock (05/17/25 14:08) Oxygen (05/17/25 14:08) Hs Troponin I W Calculations (05/17/25 16:08) Hs Troponin I W Calculations (05/17/25 17:08) Completed JENNIFER Wick MD Chest,Single View (05/17/25 14:08) Cbc/Diff (05/17/25 14:08) BMP (05/17/25 14:08) PBNP (05/17/25 14:08) Electrocardiogram (05/17/25 14:08) Hs Troponin I W Calculations (05/17/25 14:08) Vital Signs 05/17/25 05/17/25 05/17/25 05/17/25 14:00 14:08 15:28 15:48 Temp 97.9 97.8 Pulse 57 62 58 63 Resp 16 21 21 20 B/P (MAP) 87/51 97/70 (79) 99/76 (84) 105/67 (80) Pulse Ox 95 97 O2 Flow Rate 0 0 05/17/25 16:37 B/P (MAP) 96/65 99/64 105/64 Laboratory Tests Test 05/17/25 14:20 05/17/25 16:36 White Blood Count 6.2 Red Blood Count 2.69 L Hemoglobin 8.3 L Hematocrit 26.4 L Mean Corpuscular Volume 98.0 Mean Corpuscular Hemoglobin 30.9 Mean Corpuscular Hemoglobin Concent 31.6 L Red Cell Distribution Width 17.9 H Platelet Count 211 Mean Platelet Volume 8.3 Neutrophils (%) (Auto) 70.4 Lymphocytes (%) (Auto) 17.4 L Monocytes (%) (Auto) 10.5 Eosinophils (%) (Auto) 0.5 Basophils (%) (Auto) 1.2 H Neutrophils # (Auto) 4.3 Lymphocytes # (Auto) 1.1 Monocytes # (Auto) 0.6 Eosinophils # (Auto) 0.0 Basophils # (Auto) 0.1 CBC Comment Sodium Level 141 Potassium Level 4.3 Chloride Level 99 Carbon Dioxide Level 30.1 Anion Gap 12 Blood Urea Nitrogen 34 H Creatinine 5.74 H Estimated GFR/1.73 m2 10 BUN/Creatinine Ratio 5.9 L Glucose Level 113 H Calcium Level 8.7 Troponin I High Sensitivity 9 Pro-B-Type Natriuretic Peptide 9156 H Albumin 3.1 L Chemistry Comments Medical Decision Making Additional information obtaine: old records Findings Orthostatic vital signs were negative. The patient's blood pressure increased slightly on standing. Differential Dx:Considerations: Include: dehydration, electrolyte imbalance, hypotension, hypovolemia, renal failure; Unlikely: anemia, CVA, dysrhythmia, encephalopathy, Guillain-[place], hypoglycemia, labyrinthitis, Meniere's disease, myasathenia gravis, myocardial infarction, pulmonary embolus, respiratory failure, TIA, VBI, vertigo central, vertigo peripheral, vestibular neuronitis, other Departure Disposition: HOME / SELF CARE / HOMELESS Impression: Primary Impression: Generalized weakness Additional Impression Text It is important to see your doctor or primary care provider. Emergency care may be incomplete without proper follow-up. Symptoms sometimes change or new symptoms might arise after you leave the emergency department. It is important that you call your doctor if you become worse in any way, or return to the emergency department. You are strongly urged to follow-up with your physician to assure complete and thorough care. Please call your doctor's office today, and informed them that you were seen in the emergency department, and that you need to be seen immediately for close follow-up. If you do not have a primary care doctor we encourage you to proactively seek a local physician for close follow-up. Consider local clinics, [facility], or local [facility]. Prior to discharge we spoke at length concerning symptoms that would merit reevaluation, but please return to the emergency department for any symptoms that are concerning to you, and we will be happy to continue your evaluation and treatment. Please note you can always return to the emergency department if you are having difficulty coordinating close follow-up. If medications were prescribed, you should fill them at your local pharmacy immediately and take only as prescribed. Bring your new medications to your doctors follow-up visit to discuss any changes that would be necessary. Please check [employer] for any results you did not receive in the Emergency Department: often we are unable to get all your tests back before you leave, and these tests need to be reviewed by your PCP and yourself. You can also call Medical Records if you are unable to access the internet to see [employer]. Return to the emergency department immediately for worsening chest pain, difficulty breathing, sweating, or other concerning emergent symptoms. Condition: Stable Referrals: NO PRIMARY CARE PROVIDER (PCP) Education Educated: Patient Educated regarding: diagnosis, treatment, prognosis, need for follow up Signature Scribe Signature: . Attestation: . JENNIFER SCHMITT MD May 17, 2025 14:50
[2025-05-17 15:00] LABS: CREATININE 5.74 MG/DL (0.60-1.10); PRO BRAIN NATRIURETIC PEPTIDE 9156 PG/ML (0-125); TOTAL CARBON DIOXIDE 30.1 MMOL/L (24-32); eCRCL 15 ML/MIN; eGFR 10 ML/MIN
[2025-05-17 17:18] VITALS: BP 99/65; PULSE 94; RESP 12; O2SAT 90
== END 2025-05-17 17:36 | disposition home or self-care (01) ==
LOC: ER 13:55
DX: R53.1 Weakness (principal); I12.0 Hypertensive chronic kidney disease with stage 5 chronic kidney disease or end stage renal disease; N18.6 End stage renal disease; R06.02 Shortness of breath; I48.91 Unspecified atrial fibrillation; Z88.0 Allergy status to penicillin; Z88.1 Allergy status to other antibiotic agents; Z88.8 Allergy status to other drugs, medicaments and biological substances; Z99.2 Dependence on renal dialysis
CPT/HCPCS: 36415; 71045; 80048; 83880; 84484; 85025; 93005; 99285